=== PATIENT | male | born 1955 | race Caucasian/White ===

== ENCOUNTER 2016-08-06 01:57 | Emergency (ER) | payer MEDICARE, MEDICAID ==
[2016-08-06 02:08] VITALS: BMI 29.2
[2016-08-06] MEDS ORDERED: Sodium Chloride 0.9% 1,000 ML IV STA (02:14)
[2016-08-06] MEDS ORDERED: HYDROmorphone 2 mg/ml ISec IVP STA (02:15)
[2016-08-06 02:16] VITALS: RESP 18; TEMP 98.2
[2016-08-06] MEDS ORDERED: HYDROmorphone 2 mg/ml ISec ONE (02:20)
--- NOTE | 2016-08-06 02:20 | ED PDOC ---
Arrival/HPI - General Chief Complaint: Back Pain Time Seen by Provider: 08/06/16 02:10 Historian: Patient - History of Present Illness Narrative History of Present Illness (Text): 08/06/16 02:17 Chyna Us is a 61 year old male, with a history of CAD with stent, presents to the emergency department complaining of hematuria and testicular pain since 9 pm yesterday. States symptoms are similar to previous episode of kidney stones. Denies any flank pain. Also reports of decreased urinary output due to feelings of obstruction. Denies fever, chills, chest pain, difficulty breathing, nausea, vomiting, or any other complaints at this time. Time/Duration: 4-6 hours Symptom Onset: Sudden Symptom Course: Unchanged Activities at Onset: Light Context: Home Past Medical History - Provider Review Nursing Documentation Reviewed: Yes - Cardiac Hx Coronary Artery Disease: Yes - Psychiatric Hx Substance Use: No - Surgical History Hx Coronary Stent: Yes - Suicidal Assessment Feels Threatened In Home Enviroment: No Family/Social History - Physician Review Nursing Documentation Reviewed: Yes Family/Social History: No Known Family HX Smoking Status: n Hx Alcohol Use: No Hx Substance Use: No Allergies/Home Meds Allergies/Adverse Reactions: Allergies No Known Allergies Allergy (Unverified 01/11/13 18:11) Review of Systems - Physician Review All systems were reviewed & negative as marked: Yes - Review of Systems Constitutional: Normal. absent: Fatigue, Fevers Respiratory: Normal. absent: SOB, Cough Cardiovascular: Normal. absent: Chest Pain, Palpitations Gastrointestinal: Normal. absent: Abdominal Pain, Diarrhea, Nausea, Vomiting Genitourinary Male: Hematuria, Other (testicular pain ) Musculoskeletal: absent: Back Pain, Neck Pain Psychiatric: Normal Physical Exam Vital Signs Reviewed: Yes Vital Signs Temp Pulse Resp BP Pulse Ox 08/06/16 04:33 84 18 146/78 99 08/06/16 02:10 98.2 F 91 H 18 152/84 H 98 Temperature: Afebrile Blood Pressure: Normal Pulse: Regular Respiratory Rate: Normal Appearance: Positive for: Well-Appearing, Non-Toxic, Comfortable Pain Distress: None Mental Status: Positive for: Alert and Oriented X 3 - Systems Exam Head: Present: Atraumatic, Normocephalic Pupils: Present: PERRL Conjunctiva: Present: Normal Respiratory/Chest: Present: Clear to Auscultation, Good Air Exchange. No: Respiratory Distress, Accessory Muscle Use Cardiovascular: Present: Regular Rate and Rhythm, Normal S1, S2. No: Murmurs Abdomen: Present: Normal Bowel Sounds. No: Tenderness, Distention, Peritoneal Signs Genitourinary Male: Present: Normal External Genitalia. No: Penile Discharge, Testicle Tenderness, Penile Swelling, Erythema, Testicle Swelling Back: Present: Normal Inspection. No: CVA Tenderness Upper Extremity: Present: Normal Inspection. No: Cyanosis, Edema Lower Extremity: Present: Normal Inspection. No: Edema Neurological: Present: GCS=15, CN II-XII Intact, Speech Normal, Motor Func Grossly Intact, Normal Sensory Function Skin: Present: Warm, Dry, Normal Color. No: Rashes Psychiatric: Present: Alert, Oriented x 3, Normal Insight, Normal Concentration Medical Decision Making ED Course and Treatment: 08/06/16 02:22 Impression: A 61 year old male who presents to the ed complaining of hematuria and testicular pain. Plan: -- CT abdomen pelvis -- Labs -- Dilaudid -- IV fluids -- Zofran -- Urinalysis Progress Notes: 08/06/16 03:51 CT abdomen pelvis reviewed: IMPRESSION: 1. Hyperdense bladder mass and/or hematoma. Recommend cystoscopy. 2. Kidney lesion, indeterminate. Recommend ultrasound or MRI. explained the need for urological follow up for hematuria concerns for bladder ca, pt agrees and son will have pt follow up 08/06/16 06:38 - Lab Interpretations Lab Results: 08/06/16 02:20 08/06/16 02:20 Lab Results 08/06/16 02:20: Sodium 139, Potassium 4.4, Chloride 101, Carbon Dioxide 31, Anion Gap 11, BUN 16, Creatinine 0.9, Est GFR ( Amer) > 60, Est GFR (Non- Af Amer) > 60, Random Glucose 208 H, Calcium 9.8, Total Bilirubin 0.6, AST 36, ALT 36, Alkaline Phosphatase 63, Total Protein 8.3, Albumin 4.3, Globulin 3.9, Albumin/Globulin Ratio 1.1 08/06/16 02:20: WBC 5.5, RBC 4.67, Hgb 11.7 L, Hct 36.3 L, MCV 77.7 L, MCH 25.1 , MCHC 32.2, RDW 16.7 H, Plt Count 276, MPV 11.2 H, Gran % 50.0, Lymph % (Auto) 38.4 H, [place] % (Auto) 8.7 H, Eos % (Auto) 2.7, Baso % (Auto) 0.2, Gran # 2.75, Lymph # 2.1, [place] # 0.5, Eos # 0.2, Baso # 0.01 08/06/16 02:17: Urine Color Red, Urine Appearance Bloody, Urine pH 8.5, Ur Specific [place] 1.025, Urine Protein >=300 H, Urine Glucose (UA) 500 H, Urine Ketones Negative, Urine Blood Large H, Urine Nitrate Negative, Urine Bilirubin Negative, Urine Urobilinogen 2.0 H, Ur Leukocyte Esterase Negative, Urine RBC Tntc, Urine WBC 0 - 2, Ur Epithelial Cells 0 - 2, Urine Bacteria Small - RAD Interpretation Narrative RAD Interpretations (Text): EXAM: CT Abdomen and Pelvis Without Intravenous Contrast FINDINGS: Lower thorax: Mild atelectasis. Coronary artery calcifications. ABDOMEN: Liver: Unremarkable. Gallbladder and bile ducts: Gallstones. No ductal dilation. Pancreas: Unremarkable. No ductal dilation. Spleen: No splenomegaly. Adrenals: No mass. Kidneys and ureters: Few LEFT renal cysts. Small calculus within LEFT kidney. 0.5 x 0.5 x 0.5 cm hyperdense lesion within RIGHT kidney, indeterminate. No hydronephrosis. Stomach and bowel: No definite mural thickening. No obstruction. Appendix: Appendectomy. PELVIS: Bladder: Garcia catheter. 4.1 x 2.1 x 3.4 cm hyperdense lesion along LEFT posterolateral wall of bladder. No stones. Reproductive: Mildly enlarged prostate. ABDOMEN and PELVIS: Intraperitoneal space: No significant fluid collection. No free air. Bones/joints: Mild degenerative changes of hips and spine. No acute fracture. Soft tissues: Tiny inguinal hernias containing fat. Vasculature: Mild atherosclerotic disease of aorta and iliac arteries. No aneurysm. Lymph nodes: Few subcentimeter short axis lymph nodes within upper abdomen, retroperitoneum. IMPRESSION: 1. Hyperdense bladder mass and/or hematoma. Recommend cystoscopy. 2. Kidney lesion, indeterminate. Recommend ultrasound or MRI. 3. Incidental/non-acute findings are described above. Radiology Orders: 08/06/16 02:14 ABD & PELVIS W/O PO OR IV CONT [CT] Stat Guest Relations Receptionist: Radiologist - Medication Orders Current Medication Orders: Discontinued Medications Hydromorphone HCl (Dilaudid) 2 mg IVP STAT STA Stop: 08/06/16 02:16 Last Admin: 08/06/16 02:25 Dose: 2 mg Hydromorphone HCl (Dilaudid) Confirm Administered Dose 2 mg .ROUTE .STK-MED ONE Stop: 08/06/16 02:21 Last Admin: 08/06/16 02:20 Dose: Sodium Chloride (Sodium Chloride 0.9%) 1,000 mls @ 100 mls/hr IV .Q10H STA Stop: 08/06/16 12:13 Last Admin: 08/06/16 02:25 Dose: 100 mls/hr Ondansetron HCl (Zofran Inj) 4 mg IVP STAT STA Stop: 08/06/16 02:15 Last Admin: 08/06/16 02:23 Dose: 4 mg - Scribe Statement The provider has reviewed the documentation as recorded by the Sandra Smith Provider Attestation: All medical record entries made by the Sandra were at my direction and personally dictated by me. I have reviewed the chart and agree that the record accurately reflects my personal performance of the history, physical exam, medical decision making, and the department course for this patient. I have also personally directed, reviewed, and agree with the discharge instructions and disposition. Disposition/Present on Arrival - Present on Arrival Any Indicators Present on Arrival: No History of DVT/PE: No History of Uncontrolled Diabetes: No Urinary Catheter: No History of Decub. Ulcer: No History Surgical Site Infection Following: None - Disposition Have Diagnosis and Disposition been Completed?: Yes Diagnosis: Urinary retention, Hematuria Disposition: HOME/ ROUTINE Disposition Time: 04:25 Condition: GOOD Discharge Instructions (ExitCare): Urinary Retention in Men (ED), Acute Hematuria (ED) Additional Instructions: call dr gonzalez in am Prescriptions: Cephalexin [Keflex] 500 mg PO BID #14 capsule Referrals: Aiden Gonzalez MD [Staff Provider] - Follow up with primary
[2016-08-06 02:26] LABS: PH,URINE 8.5 (4.7-8.0); URINE BILIRUBIN NEGATIVE (NEGATIVE); URINE BLOOD LARGE (NEGATIVE); URINE GLUCOSE (UA) 500 mg/dL (NEGATIVE); URINE KETONE NEGATIVE (NEGATIVE); URINE LEUKOCYTE ESTERASE NEGATIVE Leu/uL (NEGATIVE); URINE PROTEIN >=300 mg/dL (<30 mg/dL)
[2016-08-06 02:31] LABS: URINE APPEARANCE BLOODY (CLEAR); URINE COLOR RED (YELLOW)
[2016-08-06 02:35] LABS: ADD MANUAL DIFF? NO
[2016-08-06 02:38] LABS: URINE EPITHELIAL CELLS 0 - 2 /hpf (0-5); URINE RBC TNTC /hpf (0-2); URINE WBC 0 - 2 /hpf (0-6)
[2016-08-06 02:39] LABS: URINE BACTERIA SMALL (NEG)
[2016-08-06 02:43] LABS: BASO # 0.01 K/mm3 (0.0-2.0); BASO % 0.2 % (0.0-3.0); EOS # 0.2 (0.0-0.7); EOS % 2.7 % (1.5-5.0); GRAN # 2.75 (1.4-6.5); HEMATOCRIT 36.3 % (42.0-52.0); LYMPH # 2.1 (1.2-3.4); LYMPH % 38.4 % (22.0-35.0); MEAN CELL VOLUME 77.7 fL (80.0-105.0); MEAN CORPUSCULAR HEMOGLOBIN 25.1 pg (25.0-35.0); MEAN CORPUSCULAR HGB CONC 32.2 g/dl (31.0-37.0); MEAN PLATELET VOLUME 11.2 fl (7.0-11.0); MONO # 0.5 (0.1-0.6); MONO % 8.7 % (1.0-6.0); PLATELET COUNT 276 10^3/uL (120.0-450.0); RED CELL DISTRIBUTION WIDTH 16.7 % (11.5-14.5); WHITE BLOOD COUNT 5.5 10^3/ul (4.5-11.0)
[2016-08-06 02:49] LABS: ALB/GLOB RATIO 1.1 (1.1-1.8); ALKALINE PHOSPHATASE 63 U/L (38-133); ALT/SGPT 36 U/L (7-56); AST/SGOT 36 U/L (15-59); BILIRUBIN,TOTAL 0.6 mg/dL (0.2-1.3); BLOOD UREA NITROGEN 16 mg/dL (7-21); CALCIUM 9.8 mg/dL (8.4-10.5); CARBON DIOXIDE 31 mmol/L (21-33); CHLORIDE 101 mmol/L (98-107); GFR AFRICAN-AMERICAN > 60; GLUCOSE,RANDOM 208 mg/dL (70-110); POTASSIUM 4.4 mmol/L (3.6-5.0); SODIUM 139 mmol/L (132-148); TOTAL PROTEIN 8.3 g/dL (5.8-8.3)
--- NOTE | 2016-08-06 03:47 | CT ---
EXAM: CT Abdomen and Pelvis Without Intravenous Contrast CLINICAL HISTORY: 61 years old, male; Pain; Abdominal pain; Generalized; Additional info: Flank pain TECHNIQUE: Axial computed tomography images of the abdomen and pelvis without intravenous contrast. This CT exam was performed using one or more of the following dose reduction techniques: automated exposure control, adjustment of the mA and/or kV according to patient size, and/or use of iterative reconstruction technique. Coronal and sagittal reformatted images were created and reviewed. COMPARISON: No relevant prior studies available. FINDINGS: Lower thorax: Mild atelectasis. Coronary artery calcifications. ABDOMEN: Liver: Unremarkable. Gallbladder and bile ducts: Gallstones. No ductal dilation. Pancreas: Unremarkable. No ductal dilation. Spleen: No splenomegaly. Adrenals: No mass. Kidneys and ureters: Few LEFT renal cysts. Small calculus within LEFT kidney. 0.5 x 0.5 x 0.5 cm hyperdense lesion within RIGHT kidney, indeterminate. No hydronephrosis. Stomach and bowel: No definite mural thickening. No obstruction. Appendix: Appendectomy. PELVIS: Bladder: Garcia catheter. 4.1 x 2.1 x 3.4 cm hyperdense lesion along LEFT posterolateral wall of bladder. No stones. Reproductive: Mildly enlarged prostate. ABDOMEN and PELVIS: Intraperitoneal space: No significant fluid collection. No free air. Bones/joints: Mild degenerative changes of hips and spine. No acute fracture. Soft tissues: Tiny inguinal hernias containing fat. Vasculature: Mild atherosclerotic disease of aorta and iliac arteries. No aneurysm. Lymph nodes: Few subcentimeter short axis lymph nodes within upper abdomen, retroperitoneum. IMPRESSION: 1. Hyperdense bladder mass and/or hematoma. Recommend cystoscopy. 2. Kidney lesion, indeterminate. Recommend ultrasound or MRI. 3. Incidental/non-acute findings are described above.
[2016-08-06 04:34] VITALS: BP 146/78; PULSE 84; O2SAT 99
== END 2016-08-06 04:43 | disposition home or self-care (01) ==
LOC: ED 01:57
DX: R33.9 Retention of urine, unspecified (principal); R31.9 Hematuria, unspecified
CPT/HCPCS: 74176; 80053; 81001; 85025; 96374; 96375; 99284; J1170; J2405; J7040

== ENCOUNTER 2016-08-06 09:00 | Emergency (ER) | payer MEDICARE, MEDICAID ==
[2016-08-06 09:01] VITALS: BMI 29.2
[2016-08-06 09:20] VITALS: BP 107/71; PULSE 77; RESP 18; TEMP 97.9; O2SAT 93
--- NOTE | 2016-08-06 09:32 | ED PDOC ---
Arrival/HPI - General Chief Complaint: Male Genitourinary Time Seen by Provider: 08/06/16 09:06 Historian: Patient - History of Present Illness Narrative History of Present Illness (Text): 08/06/16 09:29 61yo male with history of urinary retention with lobo bag, present to ED requesting the Lobo bag to be taken out. Patient was seen here last night for hematuria and urinary retention and DC home earlier this morning with the Lobo bag with the instruction to f/u with Dr. Gonzalez today. Patient states he has been able to urinate on his own. states the urine comes out around the meatus, and not directly into the Lobo. states he prefer th Lobo out. Denies hematuria at this time. Denies any other complaint. Past Medical History - Provider Review Nursing Documentation Reviewed: Yes - Cardiac Hx Cardiac Disorders: Yes - Pulmonary Hx Respiratory Disorders: No - Neurological Hx Neurological Disorder: No - HEENT Hx HEENT Disorder: No - Renal Hx Renal Disorder: No - Endocrine/Metabolic Hx Endocrine Disorders: No - Hematological/Oncological Hx Blood Disorders: No - Integumentary Hx Dermatological Disorder: No - Musculoskeletal/Rheumatological Hx Musculoskeletal Disorders: No - Gastrointestinal Hx Gastrointestinal Disorders: No - Genitourinary/Gynecological Other/Comment: URINARY RETENTION - Psychiatric Hx Psychophysiologic Disorder: No Hx Substance Use: No - Surgical History Hx Coronary Stent: Yes - Suicidal Assessment Feels Threatened In Home Enviroment: No Family/Social History - Physician Review Nursing Documentation Reviewed: Yes Family/Social History: Unknown Family HX Smoking Status: Never Smoked Hx Alcohol Use: No Hx Substance Use: No Allergies/Home Meds Allergies/Adverse Reactions: Allergies No Known Allergies Allergy (Unverified 08/06/16 09:15) Review of Systems - Physician Review All systems were reviewed & negative as marked: Yes - Review of Systems Constitutional: Normal Eyes: Normal ENT: Normal Respiratory: Normal Cardiovascular: Normal Gastrointestinal: Normal Genitourinary Male: Other (Lobo bag removal) Musculoskeletal: Normal Skin: Normal Neurological: Normal Endocrine: Normal Hemo/Lymphatic: Normal Psychiatric: Normal Physical Exam Vital Signs Reviewed: Yes Vital Signs Temp Pulse Resp BP Pulse Ox 08/06/16 09:20 97.9 F 77 18 107/71 93 L Temperature: Afebrile Blood Pressure: Normal Pulse: Regular Respiratory Rate: Normal Appearance: Positive for: Well-Appearing, Non-Toxic, Comfortable Pain Distress: None Mental Status: Positive for: Alert and Oriented X 3 - Systems Exam Head: Present: Atraumatic, Normocephalic Pupils: Present: PERRL Extroacular Muscles: Present: EOMI Conjunctiva: Present: Normal Mouth: Present: Moist Mucous Membranes Neck: Present: Normal Range of Motion Respiratory/Chest: Present: Clear to Auscultation, Good Air Exchange. No: Respiratory Distress, Accessory Muscle Use Cardiovascular: Present: Regular Rate and Rhythm, Normal S1, S2. No: Murmurs Abdomen: Present: Normal Bowel Sounds. No: Tenderness, Distention, Peritoneal Signs Genitourinary Male: Present: Other (Lobo bag noted, not well placed into the meatus. Bag noted to be empty, without urine.) Back: Present: Normal Inspection Upper Extremity: Present: Normal Inspection. No: Cyanosis, Edema Lower Extremity: Present: Normal Inspection. No: Edema Neurological: Present: GCS=15, CN II-XII Intact, Speech Normal Skin: Present: Warm, Dry, Normal Color. No: Rashes Psychiatric: Present: Alert, Oriented x 3, Normal Insight, Normal Concentration Medical Decision Making ED Course and Treatment: 08/06/16 09:36 Pt in ED for lobo bag removal Pt's chart from last night was reviewed. Abdominal/Pelvis CT reprot reviewed indicated IMPRESSION: 1. Hyperdense bladder mass and/or hematoma. Recommend cystoscopy. 2. Kidney lesion, indeterminate. Recommend ultrasound or MRI. Pt was DC home with Lobo bag in place and referred to Dr. gonzalez. He came back to ED this morning, requesting the removal of the bag. states is uncomfortable and he has been urinating by himself and the urines comes out from the meatus. He refused replacement of the Lobo. He understood that he can have another retention secondary to the CT finding. He understood this, but still wants the Lobo out, without replacement. Lobo bag was removed in ED by TJ Lopez. He was strongly advised to call Dr. gonzalez's office today and if possible f/u with him today. Advised TRT ED for any new or worsening symptom. Disposition/Present on Arrival - Present on Arrival Any Indicators Present on Arrival: No History of DVT/PE: No History of Uncontrolled Diabetes: No Urinary Catheter: No History of Decub. Ulcer: No History Surgical Site Infection Following: None - Disposition Have Diagnosis and Disposition been Completed?: Yes Diagnosis: Bladder mass, Encounter for Lobo catheter removal Disposition: HOME/ ROUTINE Disposition Time: 09:40 Patient Plan: Discharge Condition: STABLE Discharge Instructions (ExitCare): Urinary Leg Bag (GEN) Additional Instructions: Follow up with Urologist, Dr. gonzalez Return to ED for any new or worsening symptoms Referrals: Aiden Gonzalez MD [Staff Provider] - Follow up with primary
== END 2016-08-06 10:26 | disposition home or self-care (01) ==
LOC: ED 09:00
DX: N32.9 Bladder disorder, unspecified (principal); Z46.6 Encounter for fitting and adjustment of urinary device

== ENCOUNTER 2016-08-06 21:27 | Observation (INO) | payer OTHER, MEDICAID ==
[2016-08-06 21:31] VITALS: BMI 29.3
--- NOTE | 2016-08-06 21:42 | ED PDOC ---
Arrival/HPI - General Chief Complaint: Male Genitourinary Time Seen by Provider: 08/06/16 21:34 Historian: Patient - History of Present Illness Narrative History of Present Illness (Text): 08/06/16 21:42 Chyna Us is a 61 year old male, whose past medical history includes CAD with coronary stent and urinary retention, who presents to the Emergency department brought in by EMS for a clogged Lobo catheter tonight. Patient was seen yesterday evening for hematuria and had a Lobo catheter placed. Patient returned to ER earlier today and insisted the Lobo be removed. Patient was seen by his urologist and had another Lobo placed. Patient states the Lobo is now clogged and he is unable to pass urine with associated discomfort. Patient denies any fever, chills, nausea, vomiting, diarrhea, or any other complaints. Time/Duration: Other (tonight) Symptom Onset: Gradual Symptom Course: Unchanged Activities at Onset: Rest, Light Context: Home Past Medical History - Provider Review Nursing Documentation Reviewed: Yes - Cardiac Hx Cardiac Disorders: Yes - Pulmonary Hx Respiratory Disorders: No - Neurological Hx Neurological Disorder: No - HEENT Hx HEENT Disorder: No - Renal Hx Renal Disorder: No - Endocrine/Metabolic Hx Endocrine Disorders: No - Hematological/Oncological Hx Blood Disorders: No - Integumentary Hx Dermatological Disorder: No - Musculoskeletal/Rheumatological Hx Musculoskeletal Disorders: No - Gastrointestinal Hx Gastrointestinal Disorders: No - Genitourinary/Gynecological Other/Comment: URINARY RETENTION - Psychiatric Hx Psychophysiologic Disorder: No Hx Substance Use: No - Surgical History Hx Coronary Stent: Yes - Suicidal Assessment Feels Threatened In Home Enviroment: No Family/Social History - Physician Review Nursing Documentation Reviewed: Yes Family/Social History: No Known Family HX Smoking Status: Never Smoked Hx Alcohol Use: No Hx Substance Use: No Allergies/Home Meds Allergies/Adverse Reactions: Allergies No Known Allergies Allergy (Unverified 08/06/16 09:15) Home Medications: Home Meds Medication Instructions Recorded Confirmed Atorvastatin [Lipitor] 20 mg PO DAILY 08/07/16 08/07/16 Celecoxib [celeBREX] 200 mg PO 08/07/16 Gabapentin [Neurontin] 300 mg PO 08/07/16 Loratadine [Claritin] 10 mg PO 08/07/16 Montelukast [Singulair] 10 mg PO 08/07/16 metFORMIN [glucOPHAGE] 500 mg PO 08/07/16 Review of Systems - Physician Review All systems were reviewed & negative as marked: Yes - Review of Systems Constitutional: Normal. absent: Fevers Eyes: Normal ENT: Normal Respiratory: Normal. absent: SOB, Cough Cardiovascular: Normal. absent: Chest Pain Gastrointestinal: Normal. absent: Abdominal Pain, Nausea, Vomiting Genitourinary Male: Hematuria, Other (+clogged Lobo) Musculoskeletal: Normal Skin: Normal Neurological: Normal Endocrine: Normal Hemo/Lymphatic: Normal Psychiatric: Normal Physical Exam Vital Signs Reviewed: Yes Vital Signs Temp Pulse Resp BP Pulse Ox 08/07/16 00:43 97.9 F 68 18 117/69 96 08/06/16 21:32 97.9 F 86 18 142/88 96 Temperature: Afebrile Blood Pressure: Normal Pulse: Regular Respiratory Rate: Normal Appearance: Positive for: Well-Appearing, Non-Toxic, Comfortable Pain Distress: None Mental Status: Positive for: Alert and Oriented X 3 - Systems Exam Head: Present: Atraumatic, Normocephalic Pupils: Present: PERRL Extroacular Muscles: Present: EOMI Conjunctiva: Present: Normal Mouth: Present: Moist Mucous Membranes Neck: Present: Normal Range of Motion Respiratory/Chest: Present: Clear to Auscultation, Good Air Exchange. No: Respiratory Distress, Accessory Muscle Use Cardiovascular: Present: Regular Rate and Rhythm, Normal S1, S2. No: Murmurs Abdomen: Present: Normal Bowel Sounds. No: Tenderness, Distention, Peritoneal Signs Genitourinary Male: Present: Other (Obstructed lobo with hematuria) Back: Present: Normal Inspection Upper Extremity: Present: Normal Inspection. No: Cyanosis, Edema Lower Extremity: Present: Normal Inspection. No: Edema Neurological: Present: GCS=15, CN II-XII Intact, Speech Normal Skin: Present: Warm, Dry, Normal Color. No: Rashes Psychiatric: Present: Alert, Oriented x 3, Normal Insight, Normal Concentration Medical Decision Making ED Course and Treatment: 08/06/16 21:42 Impression: 61 year old male complaining of a clogged Lobo tonight. Differential Diagnosis include but are not limited to: obstructed Lobo vs. hematuria Plan: -- Reassess and disposition Prior Visits: Notes and results from previous visits were reviewed. Progress Notes: 08/06/16 22:[address] Xi Gonzalez, urologist, who is aware and agrees with plan. States he will come in to evaluate pt. 08/06/16 22:18 PROCEDURE: Lobo Irrigation Performed by the emergency provider Consent: Informed consent, after discussion of the risks, benefits, and alternatives to the procedure was obtained. Timeout: A timeout to verify the correct patient, procedure, and site was performed. Indication: Obstructed Lobo Procedure: Lobo catheter irrigated with sterile saline. Post-procedure: The patient tolerated the procedure well with no immediate complications 08/06/16 22:54 Dr. Gonzalez to Emergency department to evaluate pt. Requests pt be admitted to hospitalist service and he be placed on consult. 08/06/16 23:16 Case discussed with medical scientist distribution center manager, who is aware and agrees with plan. 08/06/16 23:[address] Mcdonough, who is aware and agrees with plan. Accepts pt in to hospitalist service. Pt will go to [facility] observation for gross hematuria. - Lab Interpretations Microbiology Results: Microbiology Results 08/07/16 09:00 Urine,Lobo Urine Culture - Final No Growth (<1,000 CFU/ML) Lab Results: 08/07/16 06:40 08/07/16 06:40 Lab Results 08/07/16 09:00: Urine Color Red, Urine Appearance Cloudy, Urine pH 6.0, Ur Specific [place] 1.025, Urine Protein 100 H, Urine Glucose (UA) >=1000, Urine Ketones Negative, Urine Blood Large H, Urine Nitrate Negative, Urine Bilirubin Negative, Urine Urobilinogen 0.2, Ur Leukocyte Esterase Negative, Urine RBC Tntc , Urine WBC 0 - 2, Ur Epithelial Cells 0 - 2, Urine Bacteria Trace 08/07/16 06:40: Blood Type A POSITIVE, Antibody Screen Negative, BBK History Checked No verified bt 08/07/16 06:40: Hemoglobin A1c 8.9 H 08/07/16 06:40: Sodium 139, Potassium 4.0, Chloride 103, Carbon Dioxide 26, Anion Gap 14, BUN 18, Creatinine 1.0, Est GFR ( Amer) > 60, Est GFR (Non- Af Amer) > 60, Random Glucose 269 H, Calcium 9.4, Total Bilirubin 0.6, AST 34, ALT 34, Alkaline Phosphatase 60, Total Protein 7.7, Albumin 3.9, Globulin 3.7, Albumin/Globulin Ratio 1.1 08/07/16 06:40: WBC 5.8, RBC 4.41, Hgb 11.0 L, Hct 33.8 L, MCV 76.6 L, MCH 24.9 L, MCHC 32.5, RDW 16.8 H, Plt Count 246, MPV 11.2 H 08/07/16 00:36: Blood Type Confirm A POSITIVE 08/07/16 00:36: Sodium 136, Potassium 4.3, Chloride 101, Carbon Dioxide 25, Anion Gap 14, BUN 17, Creatinine 1.0, Est GFR ( Amer) > 60, Est GFR (Non- Af Amer) > 60, Random Glucose 332 H*, Calcium 9.2, Total Bilirubin 0.5, AST 29, ALT 39, Alkaline Phosphatase 59, Total Protein 7.4, Albumin 3.9, Globulin 3.5, Albumin/Globulin Ratio 1.1 08/07/16 00:36: PT 11.2, INR 1.04, APTT 24.9 08/07/16 00:36: WBC 6.6, RBC 4.43, Hgb 11.1 L, Hct 34.1 L, MCV 77.0 L, MCH 25.1 , MCHC 32.6, RDW 16.7 H, Plt Count 246, MPV 11.3 H, Gran % 75.4 H, Lymph % (Auto ) 19.0 L, [place] % (Auto) 4.8, Eos % (Auto) 0.6 L, Baso % (Auto) 0.2, Gran # 5.00 , Lymph # 1.3, [place] # 0.3, Eos # 0.0, Baso # 0.01 I have reviewed the lab results: Yes - RAD Interpretation Radiology Orders: 08/06/16 23:43 CHEST PORTABLE [RAD] Stat Test Eng: Radiologist - Medication Orders Current Medication Orders: Discontinued Medications Atorvastatin Calcium (Lipitor) 40 mg PO STAT STA Stop: 08/07/16 00:51 Last Admin: 08/07/16 02:51 Dose: 40 mg Atorvastatin Calcium (Lipitor) 20 mg PO DAILY GALINDO Ceftriaxone Sodium (Rocephin) Confirm Administered Dose 1 gm .ROUTE .[facility]-MED ONE Stop: 08/07/16 15:39 Last Admin: 08/07/16 15:45 Dose: 1 gm Comments: ORM Administered Route: IVPB Docusate Sodium (Colace) 100 mg PO BID [facility] Last Admin: 08/09/16 17:17 Dose: 100 mg Fentanyl (Fentanyl) Confirm Administered Dose 100 mcg .ROUTE .STK-MED ONE Stop: 08/07/16 15:33 Gabapentin (Neurontin) 300 mg PO DAILY GALINDO PRN Reason: Protocol Lactated Ringer's (Lactated Ringer's) 1,000 mls @ 75 mls/hr IV .[id number] [facility] Stop: 08/07/16 18:32 Ceftriaxone Sodium (Rocephin 1 Gram Ivpb) 1 gm in 100 mls @ 200 mls/hr IVPB STAT STA PRN Reason: Protocol Stop: 08/08/16 09:19 Last Admin: 08/08/16 09:43 Dose: 200 mls/hr Insulin Human Regular (Humulin R Med) 0 units SC ACHS [facility] PRN Reason: Protocol Last Admin: 08/09/16 16:02 Dose: 5 units Lidocaine (Lidocaine (Bolus)) Confirm Administered Dose 100 mg IV .STK-MED ONE Stop: 08/07/16 15:33 Loratadine (Claritin) 10 mg PO DAILY PRN PRN Reason: Allergy symptoms Metformin HCl (Glucophage) 500 mg PO DAILY [facility] Last Admin: 08/09/16 09:12 Dose: 500 mg Metoprolol Tartrate (Lopressor) 12.5 mg PO BID [facility] Last Admin: 08/09/16 17:17 Dose: 12.5 mg Midazolam HCl (Versed Inj) Confirm Administered Dose 2 mg .ROUTE .STK-MED ONE Stop: 08/07/16 15:33 Mineral Oil (Fleet Mineral Oil Enema) 135 ml RC ONCE ONE Stop: 08/08/16 08:50 Last Admin: 08/08/16 09:42 Dose: 135 ml Montelukast Sodium (Singulair) 10 mg PO DAILY PRN PRN Reason: Allergy symptoms Morphine Sulfate (Morphine) Confirm Administered Dose 2 mg .ROUTE .STK-MED ONE Stop: 08/07/16 16:23 Morphine Sulfate (Morphine) 2 mg IVP Q15MIN PRN PRN Reason: Pain, moderate (4-7) Stop: 08/07/16 23:59 Last Admin: 08/07/16 16:51 Dose: 2 mg Re-Assess: ANAT Pain Assessment Document 08/07/16 17:55 [facility] [facility] [place]Rec: 08/07/16 18:06 [facility] [place] [facility] [id number][place] Pain Reassessment Is this a pain reassessment? Yes Sleep Is patient sleeping during reassessment? No Presence of Pain Presence of Pain Yes Pain Scale Used Pain Scale Used Numeric Morphine Sulfate (Morphine) Confirm Administered Dose 2 mg .ROUTE .STK-MED ONE Stop: 08/07/16 16:52 Morphine Sulfate (Morphine) 2 mg IVP STAT STA Stop: 08/07/16 18:12 Last Admin: 08/07/16 18:27 Dose: 2 mg Morphine Sulfate (Morphine) 2 mg IVP Q4H PRN PRN Reason: Pain, moderate (4-7) Last Admin: 08/08/16 22:42 Dose: 2 mg Oxybutynin Chloride (Ditropan Tab) 5 mg PO TID GALINDO Last Admin: 08/09/16 17:17 Dose: 5 mg Oxycodone/Acetaminophen (Percocet 5/325 Mg Tab) 1 tab PO Q6H PRN PRN Reason: Pain, moderate (4-7) Stop: 08/12/16 11:58 Last Admin: 08/09/16 12:11 Dose: 1 tab Re-Assess: [facility] Pain Assessment Document 08/09/16 13:11 [facility] [place]Rec: 08/09/16 13:20 [facility] [place] [facility] [place] [id number][place] Pain Reassessment Is this a pain reassessment? Yes Sleep Is patient sleeping during reassessment? No Presence of Pain Presence of Pain No Pantoprazole Sodium (Protonix Inj) 40 mg IVP DAILY [facility] Last Admin: 08/07/16 09:03 Dose: 40 mg Pantoprazole Sodium (Protonix Ec Tab) 40 mg PO DAILY [facility] Polyethylene Glycol (Miralax) 17 gm PO ONCE ONE Stop: 08/08/16 08:50 Last Admin: 08/08/16 09:44 Dose: 17 gm Propofol (Diprivan) Confirm Administered Dose 200 mg .ROUTE .STK-MED ONE Stop: 08/07/16 15:32 Propofol (Diprivan) Confirm Administered Dose 200 mg .ROUTE .STK-MED ONE Stop: 08/07/16 15:56 Sevoflurane (Ultane Novation) Confirm Administered Dose 250 ml .ROUTE .STK-MED ONE Stop: 08/07/16 15:54 - Scribe Statement The provider has reviewed the documentation as recorded by the Scribe Amaya Graff All medical record entries made by the Scribe were at my direction and personally dictated by me. I have reviewed the chart and agree that the record accurately reflects my personal performance of the history, physical exam, medical decision making, and the department course for this patient. I have also personally directed, reviewed, and agree with the discharge instructions and disposition. Disposition/Present on Arrival - Present on Arrival Any Indicators Present on Arrival: No History of DVT/PE: No History of Uncontrolled Diabetes: No Urinary Catheter: No History of Decub. Ulcer: No History Surgical Site Infection Following: None - Disposition Have Diagnosis and Disposition been Completed?: Yes Diagnosis: Urinary retention, Hematuria Disposition: HOSPITALIZED Disposition Time: 23:40 Condition: GOOD
[2016-08-07 01:00] LABS: ADD MANUAL DIFF? NO
--- NOTE | 2016-08-07 01:07 | CP.PCM.HP ---
<JenniferDong - Last Filed: 08/07/16 02:07> History of Present Illness - History of Present Illness History of Present Illness: 61 y/o M with PMH of CAD with stents and IDDM presents to the hospital for clogged urinary lobo catheter. Pt was initially here yesterday morning and came in with hematuria and testicular pain like symptoms. Pt received a CT scan of abdomen/pelvis at this time which showed a bladder mass and lesion on the right kidney. Pt was sent home from ED with Prescription for Keflex and a lobo , pt was also told to follow up with Dr. Gonzalez, urology. Pt returned later that afternoon due to urine leaking out from his meatus, around the lobo. Pt had the lobo removed at his request, and was told to follow up with Urology. Presently, the patient returns to the hospital after seeing urologist, Dr. Gonzalez, who placed a lobo catheter. Pt now states the lobo is clogged and it is causing him discomfort. Pt denies any current abdominal pain. Pt states he has never had anything like this in the past. Denies CP, SOB, N/V/D, dysuria. PMD: Dr. Mireles in [place] PMH: CAD, IDDM Surgical Hx: 3 cardiac stents placed, most recent stent placed in 01/2016 Family Hx: Father - Stroke Social Hx: Denies alcohol, tobacco, or illicit drug use Allergies: NKDA Medication: ASA, Plavix, Novolog, unsure of other medications. Present on Admission - Present on Admission Any Indicators Present on Admission: No Review of Systems - Constitutional Constitutional: absent: Chills, Fever, Weakness - EENT Eyes: absent: Blurred Vision, Change in Vision Nose/Mouth/Throat: absent: Nasal Congestion, Nasal Discharge - Cardiovascular Cardiovascular: absent: Chest Pain, Irregular Heart Rhythm - Respiratory Respiratory: absent: Cough, Dyspnea - Gastrointestinal Gastrointestinal: absent: Abdominal Pain - Genitourinary Genitourinary: Hematuria. absent: Flank Pain - Integumentary Integumentary: absent: New Lesions, Rash - Neurological Neurological: absent: Numbness, Syncope, Tingling Past Patient History - Past Social History Smoking Status: Never Smoked - CARDIAC Hx Cardiac Disorders: Yes - PULMONARY Hx Respiratory Disorders: No - NEUROLOGICAL Hx Neurological Disorder: No - HEENT Hx HEENT Problems: No - RENAL Hx Chronic Kidney Disease: No - ENDOCRINE/METABOLIC Hx Endocrine Disorders: No - HEMATOLOGICAL/ONCOLOGICAL Hx Blood Disorders: No - INTEGUMENTARY Hx Dermatological Problems: No - MUSCULOSKELETAL/RHEUMATOLOGICAL Hx Musculoskeletal Disorders: No - GASTROINTESTINAL Hx Gastrointestinal Disorders: No - GENITOURINARY/GYNECOLOGICAL Other/Comment: URINARY RETENTION - PSYCHIATRIC Hx Psychophysiologic Disorder: No Hx Substance Use: No - SURGICAL HISTORY Hx Coronary Stent: Yes Meds Allergies/Adverse Reactions: Allergies Allergy/AdvReac Type Severity Reaction Status Date / Time No Known Allergies Allergy Unverified 08/06/16 09:15 Physical Exam - Constitutional Appears: Well, No Acute Distress - Head Exam Head Exam: ATRAUMATIC, NORMAL INSPECTION, NORMOCEPHALIC - Eye Exam Eye Exam: EOMI, Normal appearance, PERRL - ENT Exam ENT Exam: Mucous Membranes Moist, Normal Exam - Neck Exam Neck exam: Positive for: Normal Inspection. Negative for: Lymphadenopathy - Respiratory Exam Respiratory Exam: Clear to Auscultation Bilateral, NORMAL BREATHING PATTERN. absent: Rhonchi, Wheezes - Cardiovascular Exam Cardiovascular Exam: RRR, +S1, +S2 - GI/Abdominal Exam GI & Abdominal Exam: Normal Bowel Sounds, Soft. absent: Tenderness - Exam Additional comments: Lobo in place - Extremities Exam Extremities exam: Positive for: normal inspection. Negative for: calf tenderness, pedal edema - Neurological Exam Neurological exam: Alert, CN II-XII Intact, Oriented x3 - Psychiatric Exam Psychiatric exam: Normal Affect, Normal Mood - Skin Skin Exam: Intact, Normal Color, Warm Results - Vital Signs Recent Vital Signs: Last Vital Signs Temp 97.9 F 08/07/16 00:43 Pulse 68 08/07/16 00:43 Resp 18 08/07/16 00:43 BP 117/69 08/07/16 00:43 Pulse Ox 96 08/07/16 00:43 - Labs Result Diagrams: 08/07/16 00:36 08/07/16 00:36 Assessment & Plan - Assessment and Plan (Free Text) Plan: 61 y/o M with PMH of CAD and IDDM presents with hematuria. Pt was seen by Dr. Gonzalez in the ED who states pt will go for cystoscopy in the AM to further evaluate bladder mass and cause of hematuria. At this time, pt will be admitted to med/surg and kept NPO in preparation for procedure tomorrow. 1. Hematuria NPO Cystoscopy tomorrow AM by Dr. Gonzalez Urology consulted, Dr. Gonzalez 2. Hx of CAD with stent placement Pt unsure of medication, will bring in meds tomorrow Will restart lipitor and lopressor due to cardiac hx Will hold ASA and plavix at this time 3. IDDM ISS HgA1c ordered 4. PPX Protonix SCDs Seen, reviewed, and discussed with attending Jennifer PGY-1 <Luisito Mcdonough Q - Last Filed: 08/07/16 03:30> Results - Vital Signs Recent Vital Signs: Last Vital Signs Temp 98.3 F 08/07/16 02:09 Pulse 66 08/07/16 02:09 Resp 18 08/07/16 02:09 BP 115/68 08/07/16 02:09 Pulse Ox 96 08/07/16 00:43 - Labs Result Diagrams: 08/07/16 00:36 08/07/16 00:36 Labs: Laboratory Results - last 24 hr 08/07/16 08/07/16 08/07/16 00:36 00:36 00:36 WBC 6.6 RBC 4.43 Hgb 11.1 L Hct 34.1 L MCV 77.0 L MCH 25.1 MCHC 32.6 RDW 16.7 H Plt Count 246 MPV 11.3 H Gran % 75.4 H Lymph % (Auto) 19.0 L [place] % (Auto) 4.8 Eos % (Auto) 0.6 L Baso % (Auto) 0.2 Gran # 5.00 Lymph # 1.3 [place] # 0.3 Eos # 0.0 Baso # 0.01 PT 11.2 INR 1.04 APTT 24.9 Sodium 136 Potassium 4.3 Chloride 101 Carbon Dioxide 25 Anion Gap 14 BUN 17 Creatinine 1.0 Est GFR ( Amer) > 60 Est GFR (Non-Af Amer) > 60 Random Glucose 332 H* Calcium 9.2 Total Bilirubin 0.5 AST 29 ALT 39 Alkaline Phosphatase 59 Total Protein 7.4 Albumin 3.9 Globulin 3.5 Albumin/Globulin Ratio 1.1 Attending/Attestation - Attestation I have personally seen and examined this patient.: Yes I have fully participated in the care of the patient.: Yes I have reviewed all pertinent clinical information: Yes
[2016-08-07 01:10] LABS: BASO # 0.01 K/mm3 (0.0-2.0); BASO % 0.2 % (0.0-3.0); EOS % 0.6 % (1.5-5.0); GRAN % 75.4 % (50.0-68.0); HEMATOCRIT 34.1 % (42.0-52.0); LYMPH # 1.3 (1.2-3.4); MEAN CORPUSCULAR HEMOGLOBIN 25.1 pg (25.0-35.0); MEAN CORPUSCULAR HGB CONC 32.6 g/dl (31.0-37.0); MEAN PLATELET VOLUME 11.3 fl (7.0-11.0); MONO # 0.3 (0.1-0.6); MONO % 4.8 % (1.0-6.0); PLATELET COUNT 246 10^3/uL (120.0-450.0); RED CELL DISTRIBUTION WIDTH 16.7 % (11.5-14.5); WHITE BLOOD COUNT 6.6 10^3/ul (4.5-11.0)
[2016-08-07 01:13] LABS: INR 1.04 (0.93-1.08); PARTIAL THROMBOPLASTIN TIME 24.9 Seconds (23.7-30.8)
[2016-08-07 01:20] LABS: ALB/GLOB RATIO 1.1 (1.1-1.8); ALKALINE PHOSPHATASE 59 U/L (38-133); ALT/SGPT 39 U/L (7-56); AST/SGOT 29 U/L (15-59); BILIRUBIN,TOTAL 0.5 mg/dL (0.2-1.3); BLOOD UREA NITROGEN 17 mg/dL (7-21); CALCIUM 9.2 mg/dL (8.4-10.5); CARBON DIOXIDE 25 mmol/L (21-33); CHLORIDE 101 mmol/L (95-110); GFR AFRICAN-AMERICAN > 60; POTASSIUM 4.3 mmol/L (3.6-5.0); SODIUM 136 mmol/L (132-148); TOTAL PROTEIN 7.4 g/dL (5.8-8.3)
[2016-08-07 01:26] LABS: GLUCOSE,RANDOM 332 mg/dL (70-110)
[2016-08-07 07:15] LABS: HEMATOCRIT 33.8 % (42.0-52.0); MEAN CELL VOLUME 76.6 fL (80.0-105.0); MEAN CORPUSCULAR HEMOGLOBIN 24.9 pg (25.0-35.0); MEAN CORPUSCULAR HGB CONC 32.5 g/dl (31.0-37.0); MEAN PLATELET VOLUME 11.2 fl (7.0-11.0); RED CELL DISTRIBUTION WIDTH 16.8 % (11.5-14.5); WHITE BLOOD COUNT 5.8 10^3/ul (4.5-11.0)
[2016-08-07 07:18] LABS: ALB/GLOB RATIO 1.1 (1.1-1.8); ALKALINE PHOSPHATASE 60 U/L (38-133); ALT/SGPT 34 U/L (7-56); AST/SGOT 34 U/L (15-59); BILIRUBIN,TOTAL 0.6 mg/dL (0.2-1.3); BLOOD UREA NITROGEN 18 mg/dL (7-21); CALCIUM 9.4 mg/dL (8.4-10.5); CARBON DIOXIDE 26 mmol/L (21-33); CHLORIDE 103 mmol/L (98-107); GFR AFRICAN-AMERICAN > 60; GLUCOSE,RANDOM 269 mg/dL (70-110); SODIUM 139 mmol/L (132-148); TOTAL PROTEIN 7.7 g/dL (5.8-8.3)
--- NOTE | 2016-08-07 08:14 | RAD ---
HISTORY: or COMPARISON: No prior. FINDINGS: LUNGS: No active pulmonary disease. PLEURA: No significant pleural effusion identified, no pneumothorax apparent. CARDIOVASCULAR: Normal. OSSEOUS STRUCTURES: No significant abnormalities. VISUALIZED UPPER ABDOMEN: Normal. OTHER FINDINGS: None. IMPRESSION: No active disease.
[2016-08-07] MEDS: Insulin Reg-MEDIUM-Coverage SC SCH ×4 (09:03→22:32)
[2016-08-07 10:04] LABS: URINE BILIRUBIN NEGATIVE (NEGATIVE); URINE BLOOD LARGE (NEGATIVE); URINE GLUCOSE (UA) >=1000 mg/dL (NEGATIVE); URINE KETONE NEGATIVE (NEGATIVE); URINE LEUKOCYTE ESTERASE NEGATIVE Leu/uL (NEGATIVE); URINE PROTEIN 100 mg/dL (<30 mg/dL); URINE UROBILINOGEN 0.2 E.U./dL (<1 E.U./dL)
[2016-08-07 10:05] LABS: URINE APPEARANCE CLOUDY (CLEAR); URINE COLOR RED (YELLOW)
[2016-08-07 10:21] LABS: URINE RBC TNTC /hpf (0-2)
[2016-08-07 10:22] LABS: URINE BACTERIA TRACE (NEG); URINE EPITHELIAL CELLS 0 - 2 /hpf (0-5); URINE WBC 0 - 2 /hpf (0-6)
--- NOTE | 2016-08-07 10:44 | CARD ---
APPROVED REPORT EKG Measurement Heart [id number] <Conclusion> Normal sinus rhythm Left axis deviation Possible inferior infarct, age undetermined NSSTW changes
[2016-08-07] MEDS: Morphine 2 mg/ml ISec IVP PRN ×4 (14:23→20:40)
[2016-08-07] MEDS ORDERED: Propofol 10 mg/ml Inj (20 ML) ONE ×2 (15:31→15:55)
[2016-08-07] MEDS ORDERED: Midazolam 2 MG/2 ML VIAL ONE (15:32)
[2016-08-07] MEDS ORDERED: cefTRIAXone (Rocephin) 1 gm Inj ONE (15:38)
[2016-08-07] MEDS ORDERED: Sevoflurane - Inhalation Anesthetic Liq (250 ml) ONE (15:53)
[2016-08-07] MEDS ORDERED: Morphine 2 mg/ml ISec ONE ×2 (16:22→16:51)
[2016-08-07] MEDS ORDERED: Lactated Ringer's 1,000 ML IV SCH (16:31)
[2016-08-07] MEDS ORDERED: Morphine 2 mg/ml ISec IVP STA (18:11)
[2016-08-08] MEDS: Morphine 2 mg/ml ISec IVP PRN ×3 (01:49→22:42)
[2016-08-08 07:20] LABS: ADD MANUAL DIFF? NO
[2016-08-08 07:25] LABS: BASO # 0.01 K/mm3 (0.0-2.0); BASO % 0.1 % (0.0-3.0); EOS # 0.2 (0.0-0.7); EOS % 2.1 % (1.5-5.0); GRAN # 4.54 (1.4-6.5); HEMATOCRIT 33.9 % (42.0-52.0); LYMPH # 1.8 (1.2-3.4); LYMPH % 25.4 % (22.0-35.0); MEAN CELL VOLUME 76.9 fL (80.0-105.0); MEAN CORPUSCULAR HEMOGLOBIN 24.9 pg (25.0-35.0); MEAN CORPUSCULAR HGB CONC 32.4 g/dl (31.0-37.0); MEAN PLATELET VOLUME 10.8 fl (7.0-11.0); MONO # 0.7 (0.1-0.6); MONO % 9.4 % (1.0-6.0); PLATELET COUNT 245 10^3/uL (120.0-450.0); RED CELL DISTRIBUTION WIDTH 16.7 % (11.5-14.5); WHITE BLOOD COUNT 7.2 10^3/ul (4.5-11.0)
[2016-08-08 07:37] LABS: BLOOD UREA NITROGEN 19 mg/dL (7-21); CARBON DIOXIDE 25 mmol/L (21-33); CHLORIDE 102 mmol/L (98-107); GFR AFRICAN-AMERICAN > 60; GLUCOSE,RANDOM 240 mg/dL (70-110); POTASSIUM 4.2 mmol/L (3.6-5.0); SODIUM 135 mmol/L (132-148)
--- NOTE | 2016-08-08 08:05 | PCM.URO ---
Urology Progress Note - Objective Lab Results Last 24 Hours: Laboratory Results - last 24 hr 08/07/16 08/07/16 08/07/16 00:36 06:40 09:00 WBC RBC Hgb Hct MCV MCH MCHC RDW Plt Count MPV Gran % Lymph % (Auto) [place] % (Auto) Eos % (Auto) Baso % (Auto) Gran # Lymph # [place] # Eos # Baso # Sodium Potassium Chloride Carbon Dioxide Anion Gap BUN Creatinine Est GFR ( Amer) Est GFR (Non-Af Amer) Random Glucose Hemoglobin A1c 8.9 H Calcium Urine Color Red Urine Appearance Cloudy Urine pH 6.0 Ur Specific [place] 1.025 Urine Protein 100 H Urine Glucose (UA) >=1000 Urine Ketones Negative Urine Blood Large H Urine Nitrate Negative Urine Bilirubin Negative Urine Urobilinogen 0.2 Ur Leukocyte Esterase Negative Urine RBC Tntc Urine WBC 0 - 2 Ur Epithelial Cells 0 - 2 Urine Bacteria Trace Blood Type Confirm A POSITIVE 08/08/16 08/08/16 07:00 07:00 WBC 7.2 D RBC 4.41 Hgb 11.0 L Hct 33.9 L MCV 76.9 L MCH 24.9 L MCHC 32.4 RDW 16.7 H Plt Count 245 MPV 10.8 Gran % 63.0 Lymph % (Auto) 25.4 [place] % (Auto) 9.4 H Eos % (Auto) 2.1 Baso % (Auto) 0.1 Gran # 4.54 Lymph # 1.8 [place] # 0.7 H Eos # 0.2 Baso # 0.01 Sodium 135 Potassium 4.2 Chloride 102 Carbon Dioxide 25 Anion Gap 12 BUN 19 Creatinine 1.0 Est GFR ( Amer) > 60 Est GFR (Non-Af Amer) > 60 Random Glucose 240 H Hemoglobin A1c Calcium 9.0 Urine Color Urine Appearance Urine pH Ur Specific [place] Urine Protein Urine Glucose (UA) Urine Ketones Urine Blood Urine Nitrate Urine Bilirubin Urine Urobilinogen Ur Leukocyte Esterase Urine RBC Urine WBC Ur Epithelial Cells Urine Bacteria Blood Type Confirm Intake & Output: Intake & Output 08/07/16 08/08/16 08/08/16 18:59 06:59 18:59 Intake Total 400 720 Output Total 400 845 Balance 0 -125 Intake: IV 0 Oral 400 720 Output: Urine 400 845 Urethral (Garcia) 400 845 Other: # Bowel Movements 0 0 Vital Signs: Vital Signs - 24 hr 08/07/16 08/07/16 08/07/16 15:12 16:10 16:25 Temperature 98.2 F 98 F 98 F Pulse Rate 68 105 H 99 H Respiratory 20 14 14 Rate Blood Pressure 115/67 159/95 H 196/91 H O2 Sat by Pulse 95 92 L 92 L Oximetry 08/07/16 08/07/16 08/07/16 16:40 16:55 17:10 Temperature 98 F 98 F 98 F Pulse Rate 104 H 84 84 Respiratory 14 14 14 Rate Blood Pressure 166/117 H 148/79 134/79 O2 Sat by Pulse 92 L 96 96 Oximetry 08/07/16 08/07/16 08/07/16 17:40 18:05 18:26 Temperature 98 F 98.3 F Pulse Rate 78 83 Respiratory 14 20 Rate Blood Pressure 136/76 122/75 134/79 O2 Sat by Pulse 96 90 L Oximetry 08/08/16 07:25 Temperature 99.3 F Pulse Rate 74 Respiratory 20 Rate Blood Pressure 132/83 O2 Sat by Pulse 906 H Oximetry
[2016-08-08] MEDS: Insulin Reg-MEDIUM-Coverage SC SCH ×4 (08:32→22:22)
[2016-08-08] MEDS ORDERED: POLYETHYLENE GLYCOL 3350 17 GM/Dose PACKET PO ONE (08:49)
[2016-08-08] MEDS ORDERED: Mineral Oil Enema 135 ml RC ONE (08:49)
[2016-08-08] MEDS ORDERED: cefTRIAXone 1 gm 1 GM/100 ML BAG IVPB STA (08:50)
[2016-08-08] MEDS ORDERED: Pantoprazole 40 mg EC Tab PO SCH (10:00)
--- NOTE | 2016-08-08 14:26 | CP.PCM.PN ---
<John Peter - Last Filed: 08/08/16 18:02> Subjective - Date & Time of Evaluation Date of Evaluation: 08/08/16 Time of Evaluation: 07:20 - Subjective Subjective: Patient seen and examined this morning with medical attending. Patient reports feeling better compared to admission. Patient states he still has some suprapubic tenderness. Urine output is cloudy in character with a light pink tinge color. As per urology, patient will need further monitoring for hematuria. Lobo will stay in until patient's urine color normalizes and urology indicates. No acute events over night. Urology to plan for outpatient procedure as well, will hold ASA/Plavix. Objective - Vital Signs/Intake and Output Vital Signs (last 24 hours): Temp Pulse Resp BP Pulse Ox 99.3 F 74 20 132/83 906 H 08/08/16 07:25 08/08/16 12:10 08/08/16 07:25 08/08/16 12:10 08/08/16 07:25 Intake and Output: 08/08/16 08/08/16 06:59 18:59 Intake Total 720 240 Output Total 845 300 Balance -125 -60 - Medications Medications: Current Medications Atorvastatin Calcium (Lipitor) 20 mg PO DAILY [facility] Docusate Sodium (Colace) 100 mg PO BID [facility] Last Admin: 08/08/16 12:08 Dose: 100 mg Gabapentin (Neurontin) 300 mg PO DAILY [facility] PRN Reason: Protocol Insulin Human Regular (Humulin R Med) 0 units SC ACHS [facility] PRN Reason: Protocol Last Admin: 08/08/16 11:54 Dose: 7 units Loratadine (Claritin) 10 mg PO DAILY PRN PRN Reason: Allergy symptoms Metoprolol Tartrate (Lopressor) 12.5 mg PO BID [facility] Last Admin: 08/08/16 12:10 Dose: 12.5 mg Montelukast Sodium (Singulair) 10 mg PO DAILY PRN PRN Reason: Allergy symptoms Morphine Sulfate (Morphine) 2 mg IVP Q4H PRN PRN Reason: Pain, moderate (4-7) Last Admin: 08/08/16 08:32 Dose: 2 mg Oxybutynin Chloride (Ditropan Tab) 5 mg PO TID [facility] Last Admin: 08/08/16 13:06 Dose: 5 mg Pantoprazole Sodium (Protonix Ec Tab) 40 mg PO DAILY [facility] - Labs Labs: 08/08/16 07:00 08/08/16 07:00 PT 11.2 Seconds (9.9-11.8) 08/07/16 00:36 INR 1.04 (0.93-1.08) 08/07/16 00:36 APTT 24.9 Seconds (23.7-30.8) 08/07/16 00:36 - Constitutional Appears: No Acute Distress - Head Exam Head Exam: NORMOCEPHALIC - Eye Exam Eye Exam: Normal appearance - ENT Exam ENT Exam: Mucous Membranes Moist - Respiratory Exam Respiratory Exam: NORMAL BREATHING PATTERN - Cardiovascular Exam Cardiovascular Exam: +S1, +S2 - GI/Abdominal Exam GI & Abdominal Exam: Soft - Exam Additional comments: suprapubic tenderness - Neurological Exam Neurological Exam: Alert, Awake, Oriented x3 - Psychiatric Exam Psychiatric exam: Normal Mood - Skin Skin Exam: Intact, Normal Color, Warm Assessment and Plan - Assessment and Plan (Free Text) Assessment: 61 y/o M with PMH of CAD and IDDM presents with hematuria. Pt was seen by Dr. Gonzalez in the ED who states pt will go for cystoscopy in the AM to further evaluate bladder mass and cause of hematuria. Plan: 1. Hematuria S/p Cystoscopy by Dr. Gonzalez Urology consulted, Dr. Gonzalez Urology recommends patient be monitored for hematuria Will need to follow up as outpatient for further urologic procedures, biopsy of bladder mass 2. Hx of CAD with stent placement Will hold ASA and plavix at this time 3. IDDM ISS 4. PPX Protonix SCDs Seen, reviewed, and discussed with attending <Josh Grant - Last Filed: 08/09/16 07:19> Objective - Vital Signs/Intake and Output Vital Signs (last 24 hours): Temp Pulse Resp BP Pulse Ox 98.9 F 76 20 116/77 95 08/08/16 16:00 08/08/16 17:24 08/08/16 16:00 08/08/16 17:24 08/08/16 16:00 Intake and Output: 08/09/16 08/09/16 06:59 18:59 Intake Total 660 Output Total 1125 Balance -465 - Medications Medications: Current Medications Atorvastatin Calcium (Lipitor) 20 mg PO DAILY [facility] Docusate Sodium (Colace) 100 mg PO BID [facility] Last Admin: 08/08/16 17:24 Dose: 100 mg Gabapentin (Neurontin) 300 mg PO DAILY [facility] PRN Reason: Protocol Insulin Human Regular (Humulin R Med) 0 units SC ACHS [facility] PRN Reason: Protocol Last Admin: 08/08/16 22:22 Dose: Not Given Loratadine (Claritin) 10 mg PO DAILY PRN PRN Reason: Allergy symptoms Metformin HCl (Glucophage) 500 mg PO DAILY [facility] Metoprolol Tartrate (Lopressor) 12.5 mg PO BID [facility] Last Admin: 08/08/16 17:24 Dose: 12.5 mg Montelukast Sodium (Singulair) 10 mg PO DAILY PRN PRN Reason: Allergy symptoms Morphine Sulfate (Morphine) 2 mg IVP Q4H PRN PRN Reason: Pain, moderate (4-7) Last Admin: 08/08/16 22:42 Dose: 2 mg Oxybutynin Chloride (Ditropan Tab) 5 mg PO TID [facility] Last Admin: 08/08/16 17:24 Dose: 5 mg Pantoprazole Sodium (Protonix Ec Tab) 40 mg PO DAILY [facility] - Labs Labs: 08/09/16 06:54 08/08/16 07:00 PT 11.2 Seconds (9.9-11.8) 08/07/16 00:36 INR 1.04 (0.93-1.08) 08/07/16 00:36 APTT 24.9 Seconds (23.7-30.8) 08/07/16 00:36 Attending/Attestation - Attestation I have personally seen and examined this patient.: Yes I have fully participated in the care of the patient.: Yes I have reviewed all pertinent clinical information, including history, physical exam and plan: Yes Notes (Text): 08/08/16 61 year old male with past medical history of CAD and diabetes who presented with complaint of hematuria. He had lobo placement and cystoscopy was done by urology yesterday. I discussed with Dr. Gonzalez who recommends to continue to hold aspirin/plavix and continue with irrigation prn. Will monitor lobo for hematuria / clotting clearance with plan to repeat cystoscpy with biopsy in few days. Continue with statin and lopressor for CAD. Aspirin/plavix on hold for now as above. Continue with insulin ss for diabetes. He is on miralax and colace for constipation. Also was ordered for enema today. Josh Grant MD Hospitalist.
[2016-08-09 06:56] LABS: ADD MANUAL DIFF? NO
[2016-08-09 07:08] LABS: BASO # 0.01 K/mm3 (0.0-2.0); BASO % 0.2 % (0.0-3.0); EOS # 0.2 (0.0-0.7); EOS % 2.8 % (1.5-5.0); GRAN # 3.52 (1.4-6.5); LYMPH # 1.5 (1.2-3.4); LYMPH % 25.6 % (22.0-35.0); MEAN CELL VOLUME 76.2 fL (80.0-105.0); MEAN CORPUSCULAR HEMOGLOBIN 24.7 pg (25.0-35.0); MEAN CORPUSCULAR HGB CONC 32.4 g/dl (31.0-37.0); MEAN PLATELET VOLUME 10.7 fl (7.0-11.0); MONO # 0.7 (0.1-0.6); MONO % 12.4 % (1.0-6.0); PLATELET COUNT 228 10^3/uL (120.0-450.0); RED CELL DISTRIBUTION WIDTH 16.4 % (11.5-14.5)
[2016-08-09 07:17] LABS: BLOOD UREA NITROGEN 18 mg/dL (7-21); CALCIUM 8.7 mg/dL (8.4-10.5); CARBON DIOXIDE 24 mmol/L (21-33); CHLORIDE 103 mmol/L (95-110); GFR AFRICAN-AMERICAN > 60; GLUCOSE,RANDOM 250 mg/dL (70-110); POTASSIUM 4.1 mmol/L (3.6-5.0); SODIUM 136 mmol/L (132-148)
[2016-08-09 07:41] VITALS: RESP 18
[2016-08-09] MEDS: Insulin Reg-MEDIUM-Coverage SC SCH ×3 (08:03→16:02)
[2016-08-09] MEDS ORDERED: Oxycodone/Acetaminophen 5/325 mg Tab PO PRN (11:57)
--- NOTE | 2016-08-09 15:17 | CP.PCM.DIS ---
<Roland Camacho - Last Filed: 08/10/16 15:40> Provider - Provider Date of Admission: 08/07/16 18:00 Attending physician: Josh Grant MD Primary care physician: Shari Gonzalez MD Consults: Urology: Xi Gonzalez Time Spent in preparation of Discharge (in minutes): 45 Hospital Course - Lab Results Lab Results: Most Recent Lab Values WBC 6.0 10^3/ul (4.5-11.0) 08/09/16 06:54 RBC 4.33 10^6/uL (3.5-6.1) 08/09/16 06:54 Hgb 10.7 gm/dL (14.0-18.0) L 08/09/16 06:54 Hct 33.0 % (42.0-52.0) L 08/09/16 06:54 MCV 76.2 fL (80.0-105.0) L 08/09/16 06:54 MCH 24.7 pg (25.0-35.0) L 08/09/16 06:54 MCHC 32.4 g/dl (31.0-37.0) 08/09/16 06:54 RDW 16.4 % (11.5-14.5) H 08/09/16 06:54 Plt Count 228 10^3/uL (120.0-450.0) 08/09/16 06:54 MPV 10.7 fl (7.0-11.0) 08/09/16 06:54 Gran % 59.0 % (50.0-68.0) 08/09/16 06:54 Lymph % (Auto) 25.6 % (22.0-35.0) 08/09/16 06:54 [place] % (Auto) 12.4 % (1.0-6.0) H 08/09/16 06:54 Eos % (Auto) 2.8 % (1.5-5.0) 08/09/16 06:54 Baso % (Auto) 0.2 % (0.0-3.0) 08/09/16 06:54 Gran # 3.52 (1.4-6.5) 08/09/16 06:54 Lymph # 1.5 (1.2-3.4) 08/09/16 06:54 [place] # 0.7 (0.1-0.6) H 08/09/16 06:54 Eos # 0.2 (0.0-0.7) 08/09/16 06:54 Baso # 0.01 K/mm3 (0.0-2.0) 08/09/16 06:54 PT 11.2 Seconds (9.9-11.8) 08/07/16 00:36 INR 1.04 (0.93-1.08) 08/07/16 00:36 APTT 24.9 Seconds (23.7-30.8) 08/07/16 00:36 Sodium 136 mmol/L (132-148) 08/09/16 06:54 Potassium 4.1 mmol/L (3.6-5.0) 08/09/16 06:54 Chloride 103 mmol/L (95-110) 08/09/16 06:54 Carbon Dioxide 24 mmol/L (21-33) 08/09/16 06:54 Anion Gap 13 (10-20) 08/09/16 06:54 BUN 18 mg/dL (7-21) 08/09/16 06:54 Creatinine 1.0 mg/dL (0.5-1.4) 08/09/16 06:54 Est GFR ( Amer) > 60 08/09/16 06:54 Est GFR (Non-Af Amer) > 60 08/09/16 06:54 Random Glucose 250 mg/dL (70-110) H 08/09/16 06:54 Hemoglobin A1c 8.9 % (4.2-6.5) H 08/07/16 06:40 Calcium 8.7 mg/dL (8.4-10.5) 08/09/16 06:54 Total Bilirubin 0.6 mg/dL (0.2-1.3) 08/07/16 06:40 AST 34 U/L (15-59) 08/07/16 06:40 ALT 34 U/L (7-56) 08/07/16 06:40 Alkaline Phosphatase 60 U/L (38-133) 08/07/16 06:40 Total Protein 7.7 g/dL (5.8-8.3) 08/07/16 06:40 Albumin 3.9 g/dL (3.0-4.8) 08/07/16 06:40 Globulin 3.7 gm/dL 08/07/16 06:40 Albumin/Globulin Ratio 1.1 (1.1-1.8) 08/07/16 06:40 Prostate Specific Ag 0.7 ng/mL (0.00-2.5) 08/08/16 07:00 Urine Color Red (YELLOW) 08/07/16 09:00 Urine Appearance Cloudy (CLEAR) 08/07/16 09:00 Urine pH 6.0 (4.7-8.0) 08/07/16 09:00 Ur Specific [place] 1.025 (1.005-1.035) 08/07/16 09:00 Urine Protein 100 mg/dL (<30 mg/dL) H 08/07/16 09:00 Urine Glucose (UA) >=1000 mg/dL (NEGATIVE) 08/07/16 09:00 Urine Ketones Negative mg/dL (NEGATIVE) 08/07/16 09:00 Urine Blood Large (NEGATIVE) H 08/07/16 09:00 Urine Nitrate Negative (NEGATIVE) 08/07/16 09:00 Urine Bilirubin Negative (NEGATIVE) 08/07/16 09:00 Urine Urobilinogen 0.2 E.U./dL (<1 E.U./dL) 08/07/16 09:00 Ur Leukocyte Esterase Negative Leydi/uL (NEGATIVE) 08/07/16 09:00 Urine RBC Tntc /hpf (0-2) 08/07/16 09:00 Urine WBC 0 - 2 /hpf (0-6) 08/07/16 09:00 Ur Epithelial Cells 0 - 2 /hpf (0-5) 08/07/16 09:00 Urine Bacteria Trace (NEG) 08/07/16 09:00 Blood Type A POSITIVE 08/07/16 06:40 Blood Type Confirm A POSITIVE 08/07/16 00:36 Antibody Screen Negative 08/07/16 06:40 BBK History Checked No verified bt 08/07/16 06:40 - Hospital Course Hospital Course: Upon Admission: 61yo M with PMHx of CAD s/p stents (6 months ago) and DM here for evaluation of a clogged urinary catheter and hematuria. CT Abd/Pelvis showed bladder mass and lesion on R kidney. Patient was discharged from the ED the day prior to arrival with Keflex and follow up with Dr. Gonzalez, however, he returned due to urine leak around catheter. Patient was taken to the OR for cystoscopy by Urology, Dr. Gonzalez, who replaced lobo and kept patient overnight for monitoring. Lobo output cleared up. Patient was asked to hold Asa/Plavix until follow up with Dr. Gonzalez and his software verification engineer. Patient hospital course was complicated with him having purulent drainage expressed from around the catheter. Urinalysis was negative, Urine Cx negative. Dr. Gonzalez made aware and requested removal of lobo. Patient voided 300cc of clear urine prior to being discharged. Patient was asked to take Cipro 500mg PO BID for 7 days and was also given a prescription for Percocet. Patient was asked to follow up with Dr. Gonzalez within the next week. Patient understands and agrees with plan. 1. Hematuria 2. Lower Urinary Tract infection; Cipro 500mg PO BID for 7 days 3. Hx of CAD; hold ASA/Plavix until followup with Urology and Cardiology Upon Discharge: Patient is cleared for discharge as per Dr. Grant 1. Follow up with your Primary Care Physician within 1 week 2. Follow up with Urology, Dr. Gonzalez upon discharge. Call for appointment 3. Follow up with your Can Stacker within one week 4. Hold Aspirin and Plavix until follow up with Urology and Cardiology 5. Take New antibiotics as directed. Dr. Gonzalez to recommend continued treatment upon evaluation within one week. 6. Return to the ER with any concerning symptoms New Prescriptions: 1. Percocet 5/325mg PO q6 prn #8/0 2. Cipro 500mg PO BID #14/0 Discharge Exam - Head Exam Head Exam: ATRAUMATIC, NORMAL INSPECTION, NORMOCEPHALIC - Eye Exam Eye Exam: EOMI. absent: Scleral icterus - ENT Exam ENT Exam: Mucous Membranes Moist - Respiratory Exam Respiratory Exam: Clear to PA & Lateral, NORMAL BREATHING PATTERN, UNREMARKABLE. absent: Decreased Breath Sounds, Wheezes, Respiratory Distress - Cardiovascular Exam Cardiovascular Exam: RRR, +S1, +S2. absent: JVD - GI/Abdominal Exam GI & Abdominal Exam: Soft. absent: Distended, Rebound, Rigid, Tenderness - Exam Additional comments: Purulent discharge expressed from uretheral meatus around placed lobo. Urine in lobo bag: light yellow, no apparent cloudiness. Lobo removed prior to discharge. post-removal, voided 300cc of clear yellow urine as reported by nursing staff. - Extremities Exam Extremities exam: normal inspection - Neurological Exam Neurological exam: Alert, Oriented x3 - Psychiatric Exam Psychiatric exam: Normal Affect, Normal Mood - Skin Skin Exam: Dry, Intact, Normal Color, Warm Discharge Plan - Discharge Medications Prescriptions: Ciprofloxacin HCl [Cipro] 500 mg PO BID #14 tablet oxyCODONE/Acetaminophen [Percocet 5/325 mg Tab] 1 ea PO Q6H PRN #8 tab PRN Reason: Pain, Moderate (4-7) - Follow Up Plan Condition: GOOD Disposition: HOME/ ROUTINE Instructions: Acute Hematuria (DC) Additional Instructions: Patient is cleared for discharge as per Dr. Grant 1. Follow up with your Primary Care Physician within 1 week 2. Follow up with Urology, Dr. Gonzalez upon discharge. Call for appointment 3. Follow up with your Can Stacker within one week 4. Hold Aspirin and Plavix until follow up with Urology and Cardiology 5. Take New antibiotics as directed. Dr. Gonzalez to recommend continued treatment upon evaluation within one week. 6. Return to the ER with any concerning symptoms New Prescriptions: 1. Percocet 5/325mg PO q6 prn #8/0 2. Cipro 500mg PO BID #14/0 Referrals: Aiden Gonzalez MD [Staff Provider] - <Josh Grant - Last Filed: 08/10/16 21:40> Provider - Provider Date of Admission: 08/07/16 18:00 Attending physician: Josh Grant MD Primary care physician: Shari Gonzalez MD Hospital Course - Lab Results Lab Results: Most Recent Lab Values WBC 6.0 10^3/ul (4.5-11.0) 08/09/16 06:54 RBC 4.33 10^6/uL (3.5-6.1) 08/09/16 06:54 Hgb 10.7 gm/dL (14.0-18.0) L 08/09/16 06:54 Hct 33.0 % (42.0-52.0) L 08/09/16 06:54 MCV 76.2 fL (80.0-105.0) L 08/09/16 06:54 MCH 24.7 pg (25.0-35.0) L 08/09/16 06:54 MCHC 32.4 g/dl (31.0-37.0) 08/09/16 06:54 RDW 16.4 % (11.5-14.5) H 08/09/16 06:54 Plt Count 228 10^3/uL (120.0-450.0) 08/09/16 06:54 MPV 10.7 fl (7.0-11.0) 08/09/16 06:54 Gran % 59.0 % (50.0-68.0) 08/09/16 06:54 Lymph % (Auto) 25.6 % (22.0-35.0) 08/09/16 06:54 [place] % (Auto) 12.4 % (1.0-6.0) H 08/09/16 06:54 Eos % (Auto) 2.8 % (1.5-5.0) 08/09/16 06:54 Baso % (Auto) 0.2 % (0.0-3.0) 08/09/16 06:54 Gran # 3.52 (1.4-6.5) 08/09/16 06:54 Lymph # 1.5 (1.2-3.4) 08/09/16 06:54 [place] # 0.7 (0.1-0.6) H 08/09/16 06:54 Eos # 0.2 (0.0-0.7) 08/09/16 06:54 Baso # 0.01 K/mm3 (0.0-2.0) 08/09/16 06:54 PT 11.2 Seconds (9.9-11.8) 08/07/16 00:36 INR 1.04 (0.93-1.08) 08/07/16 00:36 APTT 24.9 Seconds (23.7-30.8) 08/07/16 00:36 Sodium 136 mmol/L (132-148) 08/09/16 06:54 Potassium 4.1 mmol/L (3.6-5.0) 08/09/16 06:54 Chloride 103 mmol/L (95-110) 08/09/16 06:54 Carbon Dioxide 24 mmol/L (21-33) 08/09/16 06:54 Anion Gap 13 (10-20) 08/09/16 06:54 BUN 18 mg/dL (7-21) 08/09/16 06:54 Creatinine 1.0 mg/dL (0.5-1.4) 08/09/16 06:54 Est GFR ( Amer) > 60 08/09/16 06:54 Est GFR (Non-Af Amer) > 60 08/09/16 06:54 Random Glucose 250 mg/dL (70-110) H 08/09/16 06:54 Hemoglobin A1c 8.9 % (4.2-6.5) H 08/07/16 06:40 Calcium 8.7 mg/dL (8.4-10.5) 08/09/16 06:54 Total Bilirubin 0.6 mg/dL (0.2-1.3) 08/07/16 06:40 AST 34 U/L (15-59) 08/07/16 06:40 ALT 34 U/L (7-56) 08/07/16 06:40 Alkaline Phosphatase 60 U/L (38-133) 08/07/16 06:40 Total Protein 7.7 g/dL (5.8-8.3) 08/07/16 06:40 Albumin 3.9 g/dL (3.0-4.8) 08/07/16 06:40 Globulin 3.7 gm/dL 08/07/16 06:40 Albumin/Globulin Ratio 1.1 (1.1-1.8) 08/07/16 06:40 Prostate Specific Ag 0.7 ng/mL (0.00-2.5) 08/08/16 07:00 Urine Color Red (YELLOW) 08/07/16 09:00 Urine Appearance Cloudy (CLEAR) 08/07/16 09:00 Urine pH 6.0 (4.7-8.0) 08/07/16 09:00 Ur Specific [place] 1.025 (1.005-1.035) 08/07/16 09:00 Urine Protein 100 mg/dL (<30 mg/dL) H 08/07/16 09:00 Urine Glucose (UA) >=1000 mg/dL (NEGATIVE) 08/07/16 09:00 Urine Ketones Negative mg/dL (NEGATIVE) 08/07/16 09:00 Urine Blood Large (NEGATIVE) H 08/07/16 09:00 Urine Nitrate Negative (NEGATIVE) 08/07/16 09:00 Urine Bilirubin Negative (NEGATIVE) 08/07/16 09:00 Urine Urobilinogen 0.2 E.U./dL (<1 E.U./dL) 08/07/16 09:00 Ur Leukocyte Esterase Negative Leydi/uL (NEGATIVE) 08/07/16 09:00 Urine RBC Tntc /hpf (0-2) 08/07/16 09:00 Urine WBC 0 - 2 /hpf (0-6) 08/07/16 09:00 Ur Epithelial Cells 0 - 2 /hpf (0-5) 08/07/16 09:00 Urine Bacteria Trace (NEG) 08/07/16 09:00 Blood Type A POSITIVE 08/07/16 06:40 Blood Type Confirm A POSITIVE 08/07/16 00:36 Antibody Screen Negative 08/07/16 06:40 BBK History Checked No verified bt 08/07/16 06:40 Attending/Attestation - Attestation I have personally seen and examined this patient.: Yes I have fully participated in the care of the patient.: Yes I have reviewed all pertinent clinical information, including history, physical exam and plan: Yes Notes (Text): 08/10/16 21:37 61 year old male with past medical history of CAD and diabetes who presented with complaint of hematuria. He had lobo placement and cystoscopy was done by urology. Hematuria began to clear with irrigation. Lobo was removed today and patient is discharged home today on po antibiotics. He is to follow up with urology and cardiology as outpatient within one week. Hold aspirin and plavix for now for planned repeat cystoscopy with biopsy until cleared by urology / cardiology. Josh Grant MD Hospitalist.
[2016-08-09 16:34] VITALS: BP 124/71; PULSE 52; TEMP 98; O2SAT 96
--- NOTE | 2016-08-13 12:31 | PN ---
DATE: 08/08/2016 Please see the admission history and physical, consultation and the operative report from 08/06 and 0 08/07 office note. Mr. Us is currently resting comfortably plan. PAST MEDICAL, no change. DIAGNOSES: Gross hematuria, urinary retention, hard prostate. Concerns for malignancy , urinary retention and hematuria. History of voiding dysfunction. PLAN: We are going to give him . We would like with a Garcia and not Garcia . We are going to observe the patient. If he does not voiding trial as an outpatient. plans will follow. . Curry Gonzalez MD cc: [id number] TT: 08/13/2016 09:29:59 Confirmation # [id number] Dictation # [id number] courtney
--- NOTE | 2016-08-13 12:31 | OP ---
PROCEDURE DATE: 08/07/2016 PREOPERATIVE DIAGNOSIS: Gross hematuria, urinary retention. PROCEDURE: Cystoscopy and evacuation of clots. COMPLICATIONS: There were no complications. FINDINGS: 1. There is a normal anterior urethra, no strictures. 2. There is a visually occlusive ____ at the bladder neck ____. 3. ____ the bladder ____ blood. There really is ____ tissue. We ended up fulgurating gently that area. I will explain below more why in detail, but basically I d id not want to leave the tissue tight, but I did not want to do a formal biopsy when the patient is o n Plavix. See below addendum and plan, but I did not want to stop the bleeding. See the body of the report. The name of the procedure is cysto, evacuation of the ____, and a fulgur ation gently of the bleeding sites. Multiple pictures were taken. ____ the mucosa ____ (____leakage of the Garcia or ____ there is no dis tinct lesion, but it is definitely not normal in appearance). At the termination of the procedure, there are no blood clots visible and the urine is clear with tra ction. The ____ findings are normal. INDICATIONS: See history and physical and the consultation. A very pleasant gentleman ____. He shola tyler went to the ER on Thursday night. They inserted a Garcia catheter. blood in the urine and then subsequently, it sounds like the patient went home and then came right back in. Catheter was leaking on the side, so they ____. I actually spoke to ____, the ER doctor, about it. He had emptied out the bladder. The patient felt better. He did ____, the catheter was removed. Then the next day, that was on 08/05 in the evening hours ____. Then on 08/06, the patient came to my o ffice. That is yesterday. I inserted a Garcia catheter via the urethra. He felt all better. He was actually ____ before when he walked into the office, he was writhing in pain. After this, we inserted a Garcia. He felt better, but I explained to the patient my concern with ____ , so then last evening, 08/06, he actually came to the Emergency Room. I ____ myself. They inserted a larger bore catheter, but after discussing options with the patient, the patient was feeling a little bit better. The blood had cleared up nicely. I ____ the patient with the catheter. ____ the bleeding ____ and it will happen again. In fact, mirna menendez, we irrigated 3 times. I ____ want to wait or not as the catheter was removed, inserted, removed, inserted, but now he is he re for the above procedure. The procedure is cysto, evacuation of clot and fulguration. PROCEDURE: After obtaining informed consent, the patient was placed on the table. Routine monitors were placed. Timeouts were ____ to confirm patient, positioning, etc. Cystoscope via the urethra. The anterior urethra ____, visually conclusive Essentially a large prostate at the bladder neck ____ more than a few minutes after I irrigated out c lots. There is erythema and bleeding. First, we noted a tremendous amount of clots that I irrigated out for a while and copious irrigation until we got it clear Now, we inspected the area at the bladder neck. There is ____ noted With a little spurt of ____. I did not want to do a biopsy though since he is placed on the Plavix. ____, we stopped. See below addendum. Either way, we just gently cauterized, did not want o ____. The remainder of the bladder otherwise i s relatively normal limits. Just some erythema ____ indwelling Garcia ____. At this point, connected Garcia to traction and ____ clear. We had fulgurated that bleeding site. The patient tolerated without complication. ____ rectal exam ____ nodule, but it is much higher than I would expect. It ____ prostate. Whether it is prostate malignancy or not I do not know yet. See plan below. The patient tolerated this procedure well without complications, brought to the recovery room in stab le condition with clear urine. ADDENDUM: The patient will need serum PSA. ____ in the morning ____, but we definitely have to star t somewhere. ____ prostate gland ____ PSA, I am going to recommend a prostate biopsy. I am also going to recommen d a bladder biopsy. Whether we do the ____ or not, the ____ and the like, we will have to discuss. I will discuss this all further with the patient. Meanwhile, the patient ____, we will make sure to reach out to as ____ he has been on Plavix ____. So further plans will follow depending on what we find clinically. Curry Gonzalez MD cc: [phone] TT: 08/13/2016 11:29:27 tn 08/13/2016 11:29:43
== END 2016-08-09 18:58 | disposition home or self-care (01) ==
LOC: ED 21:27 → ERH 23:42 → 5RNO 08-07 01:45 → OBSVTOIN 08-07 18:00 → INTOOBSV 08-07 18:00
PROVIDERS: ADMIT Internal Medicine; ATTEND Internal Medicine
DX: T83.098A Other mechanical complication of other urinary catheter, initial encounter (principal); T83.83XA Hemorrhage due to genitourinary prosthetic devices, implants and grafts, initial encounter; N39.0 Urinary tract infection, site not specified; R31.9 Hematuria, unspecified; R33.8 Other retention of urine; I25.10 Atherosclerotic heart disease of native coronary artery without angina pectoris; E11.9 Type 2 diabetes mellitus without complications; K59.00 Constipation, unspecified; Z79.4 Long term (current) use of insulin; Y84.6 Urinary catheterization as the cause of abnormal reaction of the patient, or of later complication, without mention of misadventure at the time of the procedure; Y92.098 Other place in other non-institutional residence as the place of occurrence of the external cause; Z95.5 Presence of coronary angioplasty implant and graft; Z82.3 Family history of stroke
CPT/HCPCS: 36415; 52001; 52214; 71010; 80048; 80053; 81001; 83036; 84153; 85025; 85027; 85610; 85730; 86850; 86900; 87086; 88304; 93005; 99285; C9113; G0378; J0696; J2001; J2250; J2270; J2704; J3010

== ENCOUNTER 2016-08-20 06:21 | Day surgery (SDC) | payer OTHER, MEDICAID ==
[2016-08-20 06:45] VITALS: BMI 29.2
--- NOTE | 2016-08-20 07:18 | ED PDOC ---
Arrival/HPI - General Historian: Patient - History of Present Illness Time/Duration: > week Symptom Onset: Gradual Symptom Course: Unchanged Quality: Aching, Burning Severity Level: 5 Activities at Onset: Rest Context: Home - General Chief Complaint: Male Genitourinary Time Seen by Provider: 08/20/16 07:04 - History of Present Illness Narrative History of Present Illness (Text): 08/20/16 07:29 This is a 61Y M with PMH of HTN, DM, CAD s/p 4 stents who came to ED for burning with urination for one week. He was sent in by his urologist, Dr. Gonzalez. He had a cystoscopy last week for hematuria and since then he has been having dysuria and increased frequency. Patient also reports he saw scant blood in his urine 2 days ago. He denies fever, chills, CP, SOB, n/v/d, numbness/ tingling. Of note, patient was [place]13[place]16 [place] [facility] [place] and drainage from his urinary catheter. The catheter was removed and patient was given Cipro and percocet. Patient finished his course of antibiotics , but continues to have dysuria. His ASA and Plavix were put on hold at last admission for the hematuria. (Teodora Larsen) Past Medical History - Provider Review Nursing Documentation Reviewed: Yes - Cardiac Hx Pacemaker: No - Pulmonary Hx Respiratory Disorders: No - Neurological Hx Paralysis: No - HEENT Hx HEENT Disorder: No - Renal Hx Renal Disorder: No - Endocrine/Metabolic Hx Endocrine Disorders: No - Hematological/Oncological Hx Blood Transfusions: No - Integumentary Hx Dermatological Disorder: No - Musculoskeletal/Rheumatological Hx Musculoskeletal Disorders: Yes - Gastrointestinal Hx Gastrointestinal Disorders: No - Genitourinary/Gynecological Other/Comment: URINARY RETENTION - Psychiatric Hx Psychophysiologic Disorder: No Hx Substance Use: No - Surgical History Hx Coronary Stent: Yes - Anesthesia Hx Anesthesia Reactions: No Hx Malignant Hyperthermia: No - Suicidal Assessment Feels Threatened In Home Enviroment: No Family/Social History - Physician Review Nursing Documentation Reviewed: Yes Family/Social History: Hypertension Smoking Status: Never Smoked Hx Alcohol Use: No Hx Substance Use: No Allergies/Home Meds Allergies/Adverse Reactions: Allergies No Known Allergies Allergy (Unverified 08/06/16 09:15) Home Medications: Home Meds Medication Instructions Recorded Confirmed Atorvastatin [Lipitor] 20 mg PO DAILY 08/07/16 08/20/16 Celecoxib [celeBREX] 200 mg PO DAILY 08/07/16 08/20/16 Gabapentin [Neurontin] 300 mg PO DAILY 08/07/16 08/20/16 Loratadine [Claritin] 10 mg PO DAILY 08/07/16 08/20/16 Montelukast [Singulair] 10 mg PO DAILY 08/07/16 08/20/16 metFORMIN [glucOPHAGE] 500 mg PO DAILY 08/07/16 08/20/16 Aspirin [Ecotrin] 81 mg PO DAILY 08/19/16 08/20/16 Clopidogrel [Plavix] 75 mg PO DAILY 08/19/16 08/20/16 Fenofibrate Nanocrystallized 145 mg PO DAILY 08/19/16 08/20/16 [Fenofibrate] Insulin Glargine, Recombina 60 unit SC HS PRN 08/19/16 08/20/16 [Lantus] Insulin Lispro Mix 75/25 [humalog 20 units SC ACTID 08/19/16 08/20/16 Mix 75/25 75 U/Ml-25 U/Ml 10 Ml] Review of Systems - Physician Review All systems were reviewed & negative as marked: Yes - Review of Systems Constitutional: Normal. absent: Fevers Eyes: Normal. absent: Vision Changes ENT: Normal. absent: Hearing Changes, Sore Throat Respiratory: Normal. absent: SOB, Cough Cardiovascular: Normal. absent: Chest Pain, Palpitations, Edema Gastrointestinal: Normal. absent: Abdominal Pain, Diarrhea, Nausea, Vomiting Genitourinary Male: Dysuria, Frequency, Hematuria Musculoskeletal: Normal. absent: Arthralgias, Back Pain Skin: Normal. absent: Rash Neurological: Normal. absent: Headache, Dizziness Endocrine: Normal. absent: Diaphoresis Hemo/Lymphatic: Normal. absent: Easy Bleeding Psychiatric: Normal. absent: Anxiety, Depression Physical Exam Vital Signs Reviewed: Yes Temperature: Afebrile Blood Pressure: Normal Pulse: Regular Respiratory Rate: Normal Appearance: Positive for: Well-Appearing, Non-Toxic, Comfortable Pain Distress: None Mental Status: Positive for: Alert and Oriented X 3 - Systems Exam Head: Present: Atraumatic, Normocephalic Pupils: Present: PERRL Extroacular Muscles: Present: EOMI Conjunctiva: Present: Normal Mouth: Present: Moist Mucous Membranes Neck: Present: Normal Range of Motion Respiratory/Chest: Present: Clear to Auscultation, Good Air Exchange. No: Respiratory Distress, Accessory Muscle Use Cardiovascular: Present: Regular Rate and Rhythm, Normal S1, S2. No: Murmurs Abdomen: Present: Normal Bowel Sounds. No: Tenderness, Distention, Peritoneal Signs Back: Present: Normal Inspection Upper Extremity: Present: Normal Inspection. No: Cyanosis, Edema Lower Extremity: Present: Normal Inspection. No: Edema Neurological: Present: GCS=15, CN II-XII Intact, Speech Normal Skin: Present: Warm, Dry, Normal Color. No: Rashes Psychiatric: Present: Alert, Oriented x 3, Normal Insight, Normal Concentration Vital Signs Temp Pulse Resp BP Pulse Ox 08/20/16 08:08 98 F 64 20 116/63 95 08/20/16 06:45 98.8 F 73 18 123/76 99 Medical Decision Making Re-evaluation Time: 08:12 Reassessment Condition: Unchanged - RAD Interpretation Sausage Canner: ED Physician - EKG Interpretation Interpreted by ED Physician: Yes Type: 12 lead EKG Comparison: Similar to previous EKG ED Course and Treatment: 08/20/16 07:37 Impression: This is a 61Y M with PMH DM, HTN, CAD s/p stents here for dysuria and hematuria x 1 week. He was sent to ED by Dr. Gonzalez. DDX: UTI, cystitis, urthetral stricture Plan: -- CBC, CMP, U/A, Uculture, type and cross -- CXR -- Reassess Prior Visits: Notes and results from previous visits were reviewed. 08/20/16 08:12 Progress Note: Patient transferred to same day surgery before work up complete. (Teodora Larsen) Patient Seen With Resident: In agreement with resident note. Patient was seen and evaluated with resident, came up with plan and treatment together. (Deacon Noel DO) - Lab Interpretations Lab Results: 08/20/16 07:30 08/20/16 07:30 Lab Results 08/20/16 07:30: PT 11.2, INR 1.04, APTT 25.4 08/20/16 07:30: Blood Type A POSITIVE, Antibody Screen Negative, BBK History Checked Patient has bt 08/20/16 07:30: Sodium 139, Potassium 4.4, Chloride 108 H, Carbon Dioxide 26, Anion Gap 9 L, BUN 14, Creatinine 0.8, Est GFR ( Amer) > 60, Est GFR (Non -Af Amer) > 60, Random Glucose 180 H, Calcium 9.3, Total Bilirubin 0.4, AST 29, ALT 37, Alkaline Phosphatase 62, Total Protein 7.0, Albumin 3.9, Globulin 3.1, Albumin/Globulin Ratio 1.3 08/20/16 07:30: Urine Color Yellow, Urine Appearance Clear, Urine pH 5.5, Ur Specific [place] >= 1.030, Urine Protein 30 H, Urine Glucose (UA) Negative, Urine Ketones Negative, Urine Blood Moderate H, Urine Nitrate Negative, Urine Bilirubin Negative, Urine Urobilinogen 0.2, Ur Leukocyte Esterase Negative, Urine RBC 25 - 30, Urine WBC 5 - 10, Ur Epithelial Cells 0 - 2, Urine Bacteria Few 08/20/16 07:30: WBC 4.0 L D, RBC 4.38, Hgb 10.7 L, Hct 34.0 L, MCV 77.6 L, MCH 24.4 L, MCHC 31.5, RDW 16.8 H, Plt Count 309, MPV 10.4 - RAD Interpretation Narrative RAD Interpretations (Text): 08/20/16 07:40 CXR showed no active disease. (Teodora Larsen) Radiology Orders: 08/20/16 07:15 CXR [CHEST PORTABLE] [RAD] Stat - EKG Interpretation EKG Interpretation (Text): 08/20/16 07:39 HR 59. Intervals within normal limits. Sinus bradycardia. (Teodora Larsen) - Medication Orders Current Medication Orders: Hydromorphone HCl (Dilaudid) 0.5 mg IVP Q15M PRN PRN Reason: Pain, moderate (4-7) Stop: 08/20/16 10:22 Lactated Ringer's (Lactated Ringer's) 1,000 mls @ 75 mls/hr IV .[id number] GALINDO Stop: 08/20/16 10:22 Ondansetron HCl (Zofran Inj) 4 mg IVP ONCE PRN PRN Reason: Nausea/Vomiting Discontinued Medications Ceftriaxone Sodium (Rocephin) Confirm Administered Dose 1 gm .ROUTE .[facility]-MED ONE Stop: 08/20/16 08:55 Ephedrine (Ephedrine) Confirm Administered Dose 50 mg .ROUTE .[facility]-MED ONE Stop: 08/20/16 08:52 Fentanyl (Fentanyl) Confirm Administered Dose 100 mcg .ROUTE .ST[facility]-MED ONE Stop: 08/20/16 08:48 Gentamicin Sulfate (Gentamicin) Confirm Administered Dose 80 mg .ROUTE .STK-MED ONE Stop: 08/20/16 08:55 Lidocaine (Lidocaine (Bolus)) Confirm Administered Dose 100 mg .ROUTE .STK-MED ONE Stop: 08/20/16 08:51 Midazolam HCl (Versed Inj) Confirm Administered Dose 2 mg .ROUTE .STK-MED ONE Stop: 08/20/16 08:49 Propofol (Diprivan) Confirm Administered Dose 200 mg .ROUTE .STK-MED ONE Stop: 08/20/16 08:48 Disposition/Present on Arrival - Present on Arrival Any Indicators Present on Arrival: No History of DVT/PE: No History of Uncontrolled Diabetes: No Urinary Catheter: No History of Decub. Ulcer: No History Surgical Site Infection Following: None - Disposition Have Diagnosis and Disposition been Completed?: Yes Disposition Time: 08:13 Patient Plan: Discharge - Disposition Diagnosis: Hematuria Disposition: HOSPITALIZED Condition: FAIR Discharge Instructions (ExitCare): Acute Hematuria (GEN) Print Language: KOREAN Referrals: Олег Shaikh MD [Primary Care Provider] - Follow up with primary Aiden Gonzalez MD [Staff Provider] - Follow up with primary
[2016-08-20 07:55] LABS: MEAN CELL VOLUME 77.6 fL (80.0-105.0); MEAN CORPUSCULAR HEMOGLOBIN 24.4 pg (25.0-35.0); MEAN CORPUSCULAR HGB CONC 31.5 g/dl (31.0-37.0); MEAN PLATELET VOLUME 10.4 fl (7.0-11.0); PH,URINE 5.5 (4.7-8.0); RED CELL DISTRIBUTION WIDTH 16.8 % (11.5-14.5); URINE BILIRUBIN NEGATIVE (NEGATIVE); URINE BLOOD MODERATE (NEGATIVE); URINE GLUCOSE (UA) NEGATIVE (NEGATIVE); URINE KETONE NEGATIVE (NEGATIVE); URINE LEUKOCYTE ESTERASE NEGATIVE Leu/uL (NEGATIVE); URINE PROTEIN 30 mg/dL (<30 mg/dL); URINE UROBILINOGEN 0.2 E.U./dL (<1 E.U./dL)
[2016-08-20 07:58] LABS: ALB/GLOB RATIO 1.3 (1.1-1.8); ALKALINE PHOSPHATASE 62 U/L (38-133); ALT/SGPT 37 U/L (7-56); AST/SGOT 29 U/L (15-59); BILIRUBIN,TOTAL 0.4 mg/dL (0.2-1.3); BLOOD UREA NITROGEN 14 mg/dL (7-21); CALCIUM 9.3 mg/dL (8.4-10.5); CARBON DIOXIDE 26 mmol/L (21-33); CHLORIDE 108 mmol/L (98-107); GFR AFRICAN-AMERICAN > 60; GLUCOSE,RANDOM 180 mg/dL (70-110); POTASSIUM 4.4 mmol/L (3.6-5.0); SODIUM 139 mmol/L (132-148)
[2016-08-20 08:02] LABS: URINE APPEARANCE CLEAR (CLEAR); URINE COLOR YELLOW (YELLOW)
[2016-08-20 08:04] LABS: INR 1.04 (0.93-1.08); PARTIAL THROMBOPLASTIN TIME 25.4 Seconds (23.7-30.8); URINE BACTERIA FEW (NEG); URINE EPITHELIAL CELLS 0 - 2 /hpf (0-5); URINE RBC 25 - 30 /hpf (0-2)
[2016-08-20] MEDS ORDERED: Lactated Ringer's 1,000 ML IV SCH (08:21)
[2016-08-20] MEDS ORDERED: HYDROmorphone 0.5 mg/0.5 ml ISec IVP PRN (08:21)
[2016-08-20] MEDS ORDERED: Propofol 10 mg/ml Inj (20 ML) ONE (08:47)
[2016-08-20] MEDS ORDERED: Midazolam 2 MG/2 ML VIAL ONE (08:48)
[2016-08-20] MEDS ORDERED: ePHEDrine 50 mg/ml Inj ONE (08:51)
[2016-08-20] MEDS ORDERED: cefTRIAXone (Rocephin) 1 gm Inj ONE (08:54)
[2016-08-20] MEDS ORDERED: Gentamicin 80 mg/2mL Inj. ONE (08:54)
--- NOTE | 2016-08-20 09:09 | RAD ---
HISTORY: screening COMPARISON: 08/06/2016 FINDINGS: LUNGS: No active pulmonary disease. PLEURA: No significant pleural effusion identified, no pneumothorax apparent. CARDIOVASCULAR: Normal. OSSEOUS STRUCTURES: No significant abnormalities. VISUALIZED UPPER ABDOMEN: Normal. OTHER FINDINGS: None. IMPRESSION: No active disease.
--- NOTE | 2016-08-20 09:58 | CARD ---
APPROVED REPORT EKG Measurement Heart [id number] <Conclusion> Sinus bradycardia Otherwise normal ECG
[2016-08-20] MEDS ORDERED: Oxycodone/Acetaminophen 5/325 mg Tab PO STA (10:26)
[2016-08-20] MEDS ORDERED: Oxycodone/Acetaminophen 5/325 mg Tab ONE (10:29)
[2016-08-20 10:30] VITALS: BP 119/70; PULSE 63; RESP 18; TEMP 97.7; O2SAT 94
[2016-08-20] MEDS ORDERED: Oxycodone/Acetaminophen 5/325 mg Tab PO ONE (10:33)
--- NOTE | 2016-09-08 12:04 | OP ---
PROCEDURE DATE: 08/20/2016 PREOPERATIVE DIAGNOSES: Bladder tumor, gross hematuria, elevated PSA. POSTOPERATIVE DIAGNOSES: Bladder tumor, gross hematuria, elevated PSA. PROCEDURES: A cystoscopy, biopsy of a bladder lesion, and fulguration of the base and also a prostat e ultrasound and prostate ultrasound-guided biopsy. COMPLICATIONS: There were none. BLOOD LOSS: Less than 20 mL. INDICATIONS: See history and physical for further details. In brief though, a very pleasant gentlem an who presented with gross hematuria. Initially, he was on Plavix. We could not even biopsy. At t hat point, we just fulgurated. Now, further inspection reveals bladder tumors that he is here for. Further inspection today reveals, the findings of today are basically normal anterior urethra, no str ictures, from the veru on in is visually occlusive. There are bladder lesions right next to each bandar fice. 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 Today, I just did biopsies and fulg urations, but not deep resections. Not full TURBT. See the plans and the addendum below, but ill me ntion here in the indication portion and the findings portion that basically I think the patient need s bilateral stents and then a full TURBT. As well, the patient has a fairly firm prostate. Again, this may be secondary to retention, but his PSA is elevated and fairly firm prostate, so we did an ultrasound and ultrasound-guided prostate biop sy as a separate procedure after the bladder biopsy and fulguration and we took specimens and sent th is to the lab. SPECIMENS SENT: Bladder tumors and also prostate cores. PROCEDURE ITSELF: After obtaining informed consent, the patient was placed on the table, routine mon itors placed, timeouts were called to confirm the patient, positioning, etc. We introduced the cystoscope via the urethra. The anterior urethra is normal, no strictures. From t he veru on in is very visually occlusive, about 2-3 cm in length, visually occlusive. The ureteral orifices identified. There are small lesions next to them. Multiple pictures were take n and saved. These appear mostly to be papillary in origin. I did a little biopsy just to confirm that it is a TCC before proceeding further for my recommendatio ns, but not too deep. Deep enough though that I do believe in my specimen I will have lamina propria. Just to evaluate for the bladder. At this point, we gently fulgurated. We did not remove the tumor. The patient will require TURBT. At this point, with an indwelling Garcia catheter placed to the side, under ultrasound guidance, we di d an ultrasound of the prostate. The prostate volume measured to be about 30 grams plus. We then did random biopsies and sent these for pathologic evaluation. The patient tolerated the proc edure well without complication. ADDENDUM: Most likely, this elevation in PSA is retention related. The patient does have a firm pro state, but again, this all may be retention related. We will see what the biopsy shows. Further plans will follow. Curry Gonzalez MD cc: [id number] TT: 09/08/2016 12:03:36 en
--- NOTE | 2016-09-11 10:46 | OP ---
PROCEDURE DATE: 08/20/2016 This is a repeat of a dictation. I am absolutely positive I have dictated this before. The procedure itself, just for thoroughness, and I see in medical records they are requesting that a report is still needed so, therefore, I am dictating it now. PREOPERATIVE DIAGNOSES: Gross hematuria, elevated prostatic specific antigen, voiding dysfunction. POSTOPERATIVE DIAGNOSES: Gross hematuria, elevated prostatic specific antigen, voiding dysfunction a nd bladder cancer. PROCEDURE: Cystoscopy, bladder biopsy and fulguration, and also prostate ultrasound and prostate ult rasound and biopsy. COMPLICATIONS: There were no complications. BLOOD LOSS: Less than 20 mL. INDICATIONS: See history and physical. This is a pleasant gentleman who presented with gross hematu reinaldo. See many previously dictated notes. He is now here for the above procedure. Previously, first we had to ____ and we just fulgurated to stop bleeding because he is on Plavix. The patient is here now for the above listed procedure. He is no longer bleeding. He is off his medications. The patient has a firm and hard prostate and an elevated PSA and he is here now for the above. PROCEDURE: After obtaining informed consent, the patient was placed on the table, routine monitors p laced, timeouts were called to confirm the patient and positioning. The patient was positioned properly. Timeouts were called confirming patient. We also gave antibiotic prophylaxis. Cystoscope via the urethra, anterior urethra is normal, no stricture ____ visually occlusive about 3 cm. Then we identified bladder tumors, both at the left ureteral orifice and at the right. What we then did, I took a sample, but did not do a full resection. It is too close ____ see the gricel ns and addendum below. I just wanted to ____ tissue diagnosis. We also did an ultrasound-guided pro state biopsy. Prostate ____ is about 30-40 mL. Oddly enough, no specific abnormalities are detected when we did our biopsies. The patient tolerated ____ without complication. A Garcia catheter is passed. I just want to make a comment, the addendum in the plan. The patient will need bilateral stents inse rted and then a full TURBT, and once we do this, we will make further plans and will also see what th e pathology is. Curry Gonzalez MD cc: [id number] TT: 09/11/2016 10:36:35 rn 09/11/2016 09:45:43
--- NOTE | 2016-11-03 10:28 | HP ---
REASON FOR ADMISSION: Gross hematuria. HISTORY OF PRESENT ILLNESS: Mr. Us is a very pleasant gentleman who has voiding dysfunction, gross hematuria, urinary retention and is here now for further diagnosis workup and testing. The plan is to bring the patient to the OR for cystoscopic evaluation and possible TURP. PAST MEDICAL AND SURGICAL HISTORY: As listed on the chart. No history of an OR or CVA. He has underlying retention. SOCIAL HISTORY: Essentially unremarkable. No history of alcohol abuse. Nonsmoker. REVIEW OF SYSTEMS: As listed above, noncontributory. No weight loss, chest pain, or shortness of breath. No constitutional complaints. MEDICATIONS: See chart. ALLERGIES: NONE. PHYSICAL EXAMINATION GENERAL: Well-nourished male in no apparent distress. VITAL SIGNS: Within normal limits and chart. LUNGS: Clear. ABDOMEN: Soft, nontender, and no flank masses. GENITOURINARY: Normal phallus and no discharge. RECTAL: ____. NEUROLOGIC: Otherwise unremarkable. LABORATORY DATA: See chart. Within normal limits. DIAGNOSES: 1. Gross hematuria. 2. Urinary retention. 3. Voiding dysfunction. PLAN: The patient will be put to the OR cystoscopy and TUR. The plan is as follows. We discussed with the patient option, risks, benefits and alternatives. We discussed the voiding dysfunction, we discussed gross hematuria, we discussed incontinence, we discussed urinary retention, and we discussed surgery not working. We discussed all risks and benefits in great detail and the plan is to proceed ahead. The plan is as follows: 1. Antibiotic prophylaxis. 2. Cystoscopy and then further plan will follow. Curry Gonzalez MD
== END 2016-08-20 15:00 | disposition home or self-care (01) ==
LOC: ED 06:21 → OR 06:21 → SDS 07:30 → ED 07:49 → SDS 15:00
PROVIDERS: ATTEND Urology
DX: C67.9 Malignant neoplasm of bladder, unspecified (principal); R31.0 Gross hematuria; I10 Essential (primary) hypertension; I25.10 Atherosclerotic heart disease of native coronary artery without angina pectoris; E11.9 Type 2 diabetes mellitus without complications; Z95.5 Presence of coronary angioplasty implant and graft; Z79.4 Long term (current) use of insulin; Z79.82 Long term (current) use of aspirin
CPT/HCPCS: 52204; 55700; 71010; 80053; 81001; 85027; 85610; 85730; 86850; 86900; 87086; 88305; 93005; 99284; J0696; J1580; J2001; J2250; J2405; J2704; J3010; J7120

== ENCOUNTER 2017-09-14 10:54 | Day surgery (SDC) | payer OTHER ==
[2017-09-14 10:58] VITALS: BMI 28.5
--- NOTE | 2017-09-14 11:14 | ED PDOC ---
Arrival/HPI - General Chief Complaint: Male Genitourinary Time Seen by Provider: 09/14/17 11:02 Historian: Patient - History of Present Illness Narrative History of Present Illness (Text): 09/14/2017 62 year old male, whose PMH includes TN, coronary stents, diabetes, prostate CA , and bladder tumor, who presents to the emergency department complaining of hematuria since [address] Gonzalez advised him to come for evaluation. Patient denies fever, shortness of breath, chest pain, abdominal pain, or other complaints. Time/Duration: < week Symptom Onset: Sudden Symptom Course: Unchanged Context: Home Past Medical History - Provider Review Nursing Documentation Reviewed: Yes - Infectious Disease Hx of Infectious Diseases: None - Cardiac Hx Cardiac Disorders: Yes (CAD STENTS LAST INSERTION JAN 2016) Hx TN: Yes (2001 PER PT) - Pulmonary Hx Respiratory Disorders: No - Neurological Hx Neurological Disorder: No - HEENT Hx HEENT Disorder: Yes Hx Cataracts: Yes (BILAT IOL) - Renal Hx Renal Disorder: No - Endocrine/Metabolic Hx Endocrine Disorders: Yes Hx Diabetes Mellitus Type 2: Yes - Hematological/Oncological Hx Cancer: Yes (prostate CA) - Integumentary Hx Dermatological Disorder: No - Musculoskeletal/Rheumatological Hx Musculoskeletal Disorders: Yes Hx Falls: Yes Hx Fractures: Yes (LEFT ANKLE) - Gastrointestinal Hx Gastrointestinal Disorders: No - Genitourinary/Gynecological Hx Genitourinary Disorders: Yes (BLADDER TUMOR) Hx Hematuria: Yes - Psychiatric Hx Psychophysiologic Disorder: No Hx Substance Use: No - Surgical History Hx Cataract Extraction: Yes (BILAT.) Hx Cardiac Catheterization: Yes Hx Coronary Stent: Yes Hx Orthopedic Surgery: Yes (HX.: FX: LEFT ANKLE-PLATE AND SCREWS PLACED) Other/Comment: CYSTOSCOPY. HX: CYSTOSCOPY MEATAL DILATION, RIGHT PYELOGRAM INSERTION RIGHT URETERAL STENT(04/27/17). - Anesthesia Hx Anesthesia: Yes Hx Anesthesia Reactions: No Hx Malignant Hyperthermia: No - Suicidal Assessment Feels Threatened In Home Enviroment: No Family/Social History - Physician Review Nursing Documentation Reviewed: Yes Family/Social History: Unknown Family HX Smoking Status: Never Smoked Hx Alcohol Use: No Hx Substance Use: No Allergies/Home Meds Allergies/Adverse Reactions: Allergies No Known Allergies Allergy (Verified 04/27/17 11:53) Home Medications: Home Meds Medication Instructions Recorded Confirmed metFORMIN [glucOPHAGE] 500 mg PO DAILY 08/07/16 09/14/17 Insulin Glargine, Recombina 60 unit SC HS PRN 08/19/16 09/14/17 [Lantus] Insulin Lispro Mix 75/25 [humalog 20 units SC ACTID 08/19/16 09/14/17 Mix 75/25 75 U/Ml-25 U/Ml 10 Ml] Review of Systems - Physician Review All systems were reviewed & negative as marked: Yes - Review of Systems Constitutional: absent: Fevers Respiratory: absent: SOB Cardiovascular: absent: Chest Pain Genitourinary Male: Hematuria Physical Exam Vital Signs Reviewed: Yes Vital Signs Temp Pulse Resp BP Pulse Ox 09/14/17 16:18 97.1 F L 77 15 145/79 97 09/14/17 16:03 97.1 F L 75 14 163/83 H 96 09/14/17 13:50 98 F 79 18 129/78 96 09/14/17 13:48 98.0 F 80 18 98 09/14/17 13:26 98.1 F 95 H 18 139/80 99 09/14/17 10:59 98.5 F 99 H 18 145/89 97 Temperature: Afebrile Blood Pressure: Normal Pulse: Tachycardic Respiratory Rate: Normal Appearance: Positive for: Well-Appearing, Non-Toxic, Comfortable Pain Distress: None Mental Status: Positive for: Alert and Oriented X 3 - Systems Exam Head: Present: Atraumatic, Normocephalic Pupils: Present: PERRL Extroacular Muscles: Present: EOMI Conjunctiva: Present: Normal Respiratory/Chest: Present: Clear to Auscultation, Good Air Exchange. No: Respiratory Distress, Accessory Muscle Use, Wheezes, Decreased Breath Sounds, Rales, Retracting, Rhonchi Cardiovascular: Present: Regular Rate and Rhythm, Normal S1, S2. No: Murmurs Abdomen: Present: Normal Bowel Sounds. No: Tenderness, Distention, Peritoneal Signs, Rebound, Guarding Neurological: Present: GCS=15, CN II-XII Intact, Speech Normal Skin: Present: Warm, Dry, Normal Color. No: Rashes Psychiatric: Present: Alert, Oriented x 3, Normal Insight, Normal Concentration Medical Decision Making ED Course and Treatment: 09/14/17 Impression: 62 year old male with unremarkable physical exam complaining of hematuria since 4 days. Plan: -- Labs -- Urinalysis -- Reassess and disposition Progress Notes: 09/14/17 14:00 CT abdominal and pelvis: Creator : Jose Raul Dejesus MD FINDINGS: LOWER THORAX:Unremarkable. LIVER: Unremarkable. No gross lesion or ductal dilatation. GALLBLADDER AND BILE DUCTS: Unremarkable. PANCREAS: Unremarkable. No gross lesion or ductal dilatation. SPLEEN: Unremarkable. ADRENALS: Unremarkable. No mass. KIDNEYS AND URETERS: There is a soft tissue mass in the right distal ureter producing moderate hydronephrosis. This is best seen on coronal image 64. This is suspicious for a urothelial neoplasm. There is no evidence of a stone.Several densities are seen in the bladder which probably represent blood clots. A bladder mass cannot be excluded. VASCULATURE: Unremarkable. No aortic aneurysm. BOWEL: Unremarkable. No obstruction. No gross mural thickening. APPENDIX: Appendix removed PERITONEUM: Unremarkable. No free fluid. No free air. LYMPH NODES: Unremarkable. No enlarged lymph nodes. BLADDER: Multiple densities most likely representing blood clots REPRODUCTIVE: Unremarkable. BONES: No acute fracture. OTHER FINDINGS: None. IMPRESSION: There is a 11 x 22 mm soft tissue mass in the right distal ureter producing moderate hydronephrosis. This is best seen on coronal image 64. This is suspicious for a urothelial neoplasm. There is no evidence of a stone. Several densities are seen in the bladder which probably represent blood clots. A bladder mass cannot be excluded. 09/14/17 16:[address] gonzalez will go to or for cysto - Lab Interpretations Lab Results: 09/14/17 11:15 09/14/17 14:20 Lab Results 09/14/17 14:20: Random Glucose 192 H 09/14/17 14:10: POC Glucose (mg/dL) 167 H 09/14/17 13:56: POC Glucose (mg/dL) 26 L* 09/14/17 11:15: Urine Color Yellow, Urine Appearance Clear, Urine pH 6.0, Ur Specific [place] 1.020, Urine Protein 30 H, Urine Glucose (UA) Negative, Urine Ketones Negative, Urine Blood Large H, Urine Nitrate Negative, Urine Bilirubin Negative, Urine Urobilinogen 0.2, Ur Leukocyte Esterase Negative, Urine RBC 25 - 30, Urine WBC 2 - 5, Ur Epithelial Cells None, Urine Bacteria Many 09/14/17 11:15: Blood Type A POSITIVE, Antibody Screen Negative, BBK History Checked Patient has bt 09/14/17 11:15: Sodium 145, Potassium 4.1, Chloride 107, Carbon Dioxide 23, Anion Gap 20, BUN 36 H, Creatinine 1.7 H, Est GFR ( Amer) 49, Est GFR ( Non-Af Amer) 41, Random Glucose 132 H, Calcium 9.7, Total Bilirubin 0.3, AST 22 , ALT 29, Alkaline Phosphatase 85, Total Protein 9.2 H, Albumin 4.7, Globulin 4.5, Albumin/Globulin Ratio 1.1 09/14/17 11:15: PT 12.5, INR 1.09 H, APTT 28.9 09/14/17 11:15: WBC 6.2 D, RBC 4.70, Hgb 11.2 L, Hct 34.3 L, MCV 73.0 L, MCH 23.8 L, MCHC 32.7, RDW 16.3 H, Plt Count 318, MPV 9.8, Gran % 55.9, Lymph % ( Auto) 36.3 H, Ro[place] % (Auto) 5.5, Eos % (Auto) 2.1, Baso % (Auto) 0.2, Gran # 3.47, Lymph # (Auto) 2.3, [place] # (Auto) 0.3, Eos # (Auto) 0.1, Baso # (Auto) 0.01 I have reviewed the lab results: Yes - RAD Interpretation Radiology Orders: 09/14/17 11:23 ABD & PELVIS W/O PO OR IV CONT [CT] Stat 09/14/17 15:56 FLUOROSCOPY UP TO 1 HOUR [RAD] Routine - Medication Orders Current Medication Orders: Hydromorphone HCl (Dilaudid) 0.5 mg IVP Q15M PRN PRN Reason: Pain, moderate (4-7) Stop: 09/14/17 18:06 Lactated Ringer's (Lactated Ringer's) 1,000 mls @ 75 mls/hr IV .[id number] GALINDO Stop: 09/14/17 18:16 - Scribe Statement The provider has reviewed the documentation as recorded by the Margaritaibrachana Serna Provider Scribe Attestation: All medical record entries made by the Scribe were at my direction and personally dictated by me. I have reviewed the chart and agree that the record accurately reflects my personal performance of the history, physical exam, medical decision making, and the department course for this patient. I have also personally directed, reviewed, and agree with the discharge instructions and disposition. Disposition/Present on Arrival - Present on Arrival Any Indicators Present on Arrival: No History of DVT/PE: No History of Uncontrolled Diabetes: Yes Urinary Catheter: No History of Decub. Ulcer: No History Surgical Site Infection Following: None - Disposition Have Diagnosis and Disposition been Completed?: Yes Diagnosis: Hematuria Disposition: HOSPITALIZED Disposition Time: 04:00 Condition: STABLE
[2017-09-14 11:28] LABS: BASO # 0.01 K/mm3 (0.0-2.0); BASO % 0.2 % (0.0-3.0); EOS # 0.1 (0.0-0.7); EOS % 2.1 % (1.5-5.0); GRAN # 3.47 (1.4-6.5); GRAN % 55.9 % (50.0-68.0); HEMOGLOBIN 11.2 g/dL (14.0-18.0); LYMPH # 2.3 (1.2-3.4); LYMPH % 36.3 % (22.0-35.0); MEAN CORPUSCULAR HEMOGLOBIN 23.8 pg (25.0-35.0); MEAN CORPUSCULAR HGB CONC 32.7 g/dl (31.0-37.0); MEAN PLATELET VOLUME 9.8 fl (7.0-11.0); MONO # 0.3 (0.1-0.6); MONO % 5.5 % (1.0-6.0); RBC 4.7 10^6/uL (3.5-6.1); RED CELL DISTRIBUTION WIDTH 16.3 % (11.5-14.5); WHITE BLOOD COUNT 6.2 10^3/ul (4.5-11.0)
[2017-09-14 11:30] LABS: URINE APPEARANCE CLEAR (CLEAR); URINE BILIRUBIN NEGATIVE (NEGATIVE); URINE BLOOD LARGE (NEGATIVE); URINE COLOR YELLOW (YELLOW); URINE GLUCOSE (UA) NEGATIVE (NEGATIVE); URINE LEUKOCYTE ESTERASE NEGATIVE Leu/uL (NEGATIVE); URINE PROTEIN 30 mg/dL (<30 mg/dL); URINE UROBILINOGEN 0.2 E.U./dL (<1 E.U./dL)
[2017-09-14 11:36] LABS: URINE RBC 25 - 30 /hpf (0-2)
[2017-09-14 11:37] LABS: URINE BACTERIA MANY (NEG)
[2017-09-14 11:40] LABS: ALB/GLOB RATIO 1.1 (1.1-1.8); ALBUMIN 4.7 g/dL (3.0-4.8); CALCIUM 9.7 mg/dL (8.4-10.5); INR 1.09 (0.93-1.08); PARTIAL THROMBOPLASTIN TIME 28.9 Seconds (25.1-36.5); PROTHROMBIN TIME 12.5 SECONDS (9.4-12.5)
--- NOTE | 2017-09-14 13:29 | CT ---
PROCEDURE: CT Abdomen and Pelvis without intravenous contrast HISTORY: hematuria COMPARISON: None. TECHNIQUE: Without contrast. Contrast dose: Radiation dose: Total exam DLP = 746 mGy-cm. This CT exam was performed using one or more of the following dose reduction techniques: Automated exposure control, adjustment of the mA and/or kV according to patient size, and/or use of iterative reconstruction technique. FINDINGS: LOWER THORAX: Unremarkable. LIVER: Unremarkable. No gross lesion or ductal dilatation. GALLBLADDER AND BILE DUCTS: Unremarkable. PANCREAS: Unremarkable. No gross lesion or ductal dilatation. SPLEEN: Unremarkable. ADRENALS: Unremarkable. No mass. KIDNEYS AND URETERS: There is a soft tissue mass in the right distal ureter producing moderate hydronephrosis. This is best seen on coronal image 64. This is suspicious for a urothelial neoplasm. There is no evidence of a stone. Several densities are seen in the bladder which probably represent blood clots. A bladder mass cannot be excluded. VASCULATURE: Unremarkable. No aortic aneurysm. BOWEL: Unremarkable. No obstruction. No gross mural thickening. APPENDIX: Appendix removed PERITONEUM: Unremarkable. No free fluid. No free air. LYMPH NODES: Unremarkable. No enlarged lymph nodes. BLADDER: Multiple densities most likely representing blood clots REPRODUCTIVE: Unremarkable. BONES: No acute fracture. OTHER FINDINGS: None. IMPRESSION: There is a 11 x 22 mm soft tissue mass in the right distal ureter producing moderate hydronephrosis. This is best seen on coronal image 64. This is suspicious for a urothelial neoplasm. There is no evidence of a stone. Several densities are seen in the bladder which probably represent blood clots. A bladder mass cannot be excluded.
[2017-09-14] MEDS ORDERED: Propofol 10 mg/ml Inj (20 ML) ONE (14:11)
[2017-09-14] MEDS ORDERED: Lidocaine 2% Inj (20ml) ONE (14:12)
[2017-09-14] MEDS ORDERED: cefTRIAXone (Rocephin) 1 gm Inj ONE (15:17)
[2017-09-14] MEDS ORDERED: Iohexol 240 (50 ml) ONE (15:30)
[2017-09-14] MEDS ORDERED: HYDROmorphone 0.5 mg/0.5 ml ISec IVP PRN (16:06)
[2017-09-14] MEDS ORDERED: Lactated Ringer's 1,000 ML IV SCH (16:15)
--- NOTE | 2017-09-14 17:06 | CARD ---
APPROVED REPORT EKG Measurement Heart [id number] <Conclusion> Normal sinus rhythm Normal ECG
[2017-09-14] MEDS ORDERED: Oxycodone/Acetaminophen 5/325 mg Tab ONE (17:12)
[2017-09-14] MEDS ORDERED: Oxycodone/Acetaminophen 5/325 mg Tab PO ONE (17:15)
[2017-09-14] MEDS ORDERED: Oxycodone/Acetaminophen 5/325 mg Tab PO PRN (17:18)
[2017-09-14 17:45] VITALS: BP 128/67; PULSE 95; RESP 18; TEMP 98; O2SAT 98
--- NOTE | 2017-09-15 09:33 | RAD ---
PROCEDURE: Fluoroscopy up to 1 hour HISTORY: RETROGRADE PYELOGRAM / STENT INSERTION (RIGHT) COMPARISON: CT 09/14/2017 TECHNIQUE: 73.9 seconds of fluoro time. Cumulative dose 22.39 mGy. 20 images were submitted FINDINGS: As seen on CT there is a mass in the distal ureter at the level of the sacrum. A wire was placed beyond the mass and a right ureteral stent was placed. IMPRESSION: As above
--- NOTE | 2017-09-28 14:07 | PN ---
DATE: 09/14/2017 UROLOGY IMMEDIATE POSTOPERATIVE NOTE SUBJECTIVE: The patient is in the Recovery. See the history and physical and the surgical report. He was brought in as an emergency with hematuria. We know he has transitional cell carcinoma lesions that would be biopsied and fulgurated. He has right hydronephrosis. This was what looked like a ureteral lesion. He is currently stable in the Recovery Room. Vital signs within normal limits. DIAGNOSES: 1. Transitional cell carcinoma of the bladder. 2. Right hydronephrosis and presumably, a lesion inside distal ureter. The patient now has a stent in place. We are going to discuss further plan. Our recommendation is going to be for cystoscopy, ureteroscopy and biopsy and fulguration and then, further plans will follow. Curry Gonzalez MD
--- NOTE | 2017-09-28 19:52 | OP ---
PROCEDURE DATE: 09/14/2017 UROLOGY OPERATIVE REPORT This is an emergency report. PREOPERATIVE DIAGNOSES: Gross hematuria, history of transitional cell carcinoma. POSTOPERATIVE DIAGNOSES: 1. Gross hematuria, history of transitional cell carcinoma. 2. Right hydronephrosis, looks like a light filling defect on the right ureter. PROCEDURE: Cystoscopy, right retrograde pyelogram, insertion of right double-J stent, and bladder biopsy and fulguration. Specimen sent down was bladder biopsy. ESTIMATED BLOOD LOSS: Less than 20 mL. COMPLICATIONS: There were no complications. We were able to insert a double-J stent without complications. See the addendum at the end of this note and further plans to follow. INDICATIONS FOR PROCEDURE: See history and physical for further details. A very pleasant gentleman who is here now for the above-listed testing. DESCRIPTION OF PROCEDURE: After obtaining informed consent, the patient was placed on the table. Routine monitor was placed. Time-out was called to confirm the patient's positioning,etc. We introduced the cystoscope via urethra. Normal anterior urethra noted. No strictures are noted. Verumontanum is visually occlusive by 2 to 3 cm in size. Now, we identified the ureteral orifice within the urinary bladder. There were some inflammatory lesions, but the main focus here was the gross hematuria and the right-sided lesion. So, we focused on the following: We did a right retrograde pyelogram. We did see a filling defect in the lower ureter and a right double-J stent inserted. We also sent down specimen from the bladder to confirm the diagnosis of transitional cell carcinoma. We fulgurated the lesion. At the termination of the procedure, the patient still has other abnormalities, but the main focus was here to try to get the stent inserted. The patient tolerated the procedure without complication. With today's finding, we found bladder tumors, these need to be addressed, but the other thing that needs to be addressed is his right hydronephrosis and his right ureteral lesion. I discussed this with the patient at length. I am going to plan to bring him back as quickly as possible. Depending on his schedule, we will try to bring him back as quickly as possible. From the above findings, it seems to me that he will need a right nephroureterectomy at some point. We will recommend a surgical extirpation and most likely we will recommend it robotically. Further plans will follow. Curry Gonzalez MD [facility] # [id number]
--- NOTE | 2017-09-28 20:02 | HP ---
DATE OF EXAM: 09/14/2017 UROLOGY EMERGENCY ADMISSION HISTORY AND PHYSICAL The patient is being admitted through the ER with gross hematuria. HISTORY OF PRESENT ILLNESS: Mr. Chyna Us is being admitted as an emergency admission with gross hematuria. Mr. Us is a very pleasant gentleman, he is somewhat noncompliant. He knows he has transitional cell carcinoma of the bladder. There are concerns of upper tract. He only comes in when he is bleeding and now he comes in and noted to have bleeding again and he is here for further diagnostic studies. We discussed the options for mitomycin and other injections, but also concerns of the upper tract. See the plan as listed below. PAST MEDICAL AND SURGICAL HISTORY: As listed on the chart. No history of [place] or CVA. SOCIAL HISTORY: Remarkably work very hard, barely able to get off of work and he can only do anything after hours or very rarely. REVIEW OF SYSTEMS: As listed above. No weight loss, chest pain, shortness of breath. In his usual state of health minus the fact that he is having the gross hematuria. MEDICATIONS: See chart. ALLERGIES: . PHYSICAL EXAMINATION: GENERAL: Well-nourished male, in no apparent distress. VITAL SIGNS: Within normal limits as listed in the chart. LUNGS: Clear. ABDOMEN: Overall soft. Nontender. No flank mass appreciated. GENITOURINARY: Normal phallus without discharge. No testicular masses. RECTAL: A 20 to 30 g prostate, soft and smooth. DIAGNOSES: Gross hematuria, voiding dysfunction, history of transitional cell carcinoma of the bladder. PLAN: We are going to bring the patient as an emergency. We are going to do the followin. Getting upper tract studies. The patient was brought to the ER, see the CT scan report. 2. Planning for a cysto, retrograde. It appears the patient has hydronephrosis and may be a lesion in his ureter. So, the plan is as follows; 1. Cystoscopy. 2. Retrograde pyelogram. 3. Possible biopsy. 4. Stent insertion and then biopsy to follow. We may also require a bladder biopsy. We will see what we are dealing. Please also see previous notes, I have had a chance to review. Previously, we did insert a stent in preparation for the procedure with resection. So, at this point, further plans will follow depending on what we find clinically. The patient has been brought in as an emergency and then, further plans will follow. Curry Gonzalez MD
--- NOTE | 2017-09-29 13:29 | PN ---
DATE: 09/14/2017 IMMEDIATE POSTOPERATIVE NOTE SUBJECTIVE: See the history and physical and the operative note. This is an immediate postop note. The patient is in the recovery room, stable condition. He is status post cystoscopy and retrograde pyelogram with stent insertion and a biopsy and fulguration. Vital signs remain stable. Garcia catheter is draining. Everything start draining well. There were no complications to the procedure. The vital signs remain stable. Underlying diagnoses are gross hematuria without transitional cell carcinoma, history of fulguration carcinoma with a right ureteral lesion with right hydronephrosis. He remains stable. The plan will be routine postop care. Antibiotics will be used. Further plans will follow. Curry Gonzalez MD
--- NOTE | 2017-09-30 05:48 | HP ---
UROLOGY ADMISSION HISTORY AND PHYSICAL REASON FOR ADMISSION: Gross hematuria. HISTORY OF PRESENT ILLNESS: Mr. Us is a very pleasant gentleman who is here now for a workup. The only complaint what he is having gross hematuria as we bring him to the Emergency Room for this new gross hematuria. Initially, we worked him up and we doubted postvoiding dysfunction and prostate issues, but mostly, we doubted transitional cell carcinoma in his urinary bladder, very low grade. We discussed options including just repeat resections including the possibility for the mitomycin, chemotherapy versus BCG. After discussing all the various options with the patient, he is now being admitted to the hospital today through the Emergency Room. We did a CT scan, see the report. See the plans listed below and he is currently admitted for an emergency cysto, bladder biopsy, fulguration, and also a stent insertion. (It looks like he has an upper tract tumor as well). PAST MEDICAL AND SURGICAL HISTORY: As listed on the chart. No history of [place], CVA. SOCIAL HISTORY: He is a nonsmoker and his country of origin is [place]. REVIEW OF SYSTEMS: As listed above. No weight loss, chest pain, or shortness of breath. PHYSICAL EXAMINATION: GENERAL: Well-nourished male, in no apparent distress. VITAL SIGNS: Within normal limits as listed in the chart. LYMPHATIC: No cervical or axillary lymphadenopathy. LUNGS: Clear. HEART: S1 and S2. ABDOMEN: Overall, soft and nontender. No flank mass appreciated. GENITOURINARY: Normal phallus without discharge. No testicular masses are noted. RECTAL: A 20 to 30 g prostate, soft and smooth. LABORATORY DATA: See chart. Normal renal function noted. Hemoglobin and hematocrit noted. CT scan is noted and it has the following findings: There is right hydronephrosis. It looks like there is a right ureteral lesion around the level of the distal ureter, somewhere around the iliac vessels. Scarring middle third. There also looks like a lesion within the bladder. There is no adenopathy described. DIAGNOSES: 1. Gross hematuria. 2. History of transitional cell carcinoma. 3. Right hydronephrosis. 4. Voiding dysfunction. PLAN: Today, we are going to bright the patient to the OR immediately for a cysto, bladder biopsy, fulguration, and TURBT. Regarding his right hydronephrosis, we are going to place a stent right ureteroscope and then further plans to follow. I explained to the patient in great detail, further plans to follow. Curry Gonzalez MD
--- NOTE | 2017-10-01 08:44 | OP ---
PROCEDURE DATE: 09/14/2017 UROLOGIC OPERATIVE NOTE PREOPERATIVE DIAGNOSES: Gross hematuria, history of transitional cell carcinoma of the bladder, right hydronephrosis, right ureteral tumor, and bladder tumor. POSTOPERATIVE DIAGNOSES: Gross hematuria, history of transitional cell carcinoma of the bladder, right hydronephrosis, right ureteral tumor and bladder tumor. PROCEDURES: Cystoscopy, right retrograde pyelogram, right double-J stent insertion, right bladder biopsy and fulguration. COMPLICATIONS: There were no complications. INDICATIONS: See history and physical for further details. A very pleasant gentleman who has significant voiding dysfunction, does have a little bit of a meatal abnormality. We were able to introduce the scope without much dilation. He has voiding dysfunction, gross hematuria, bladder lesions. He is here now for the above procedure. A very pleasant, but somewhat noncompliant gentleman in the emergency room today. This is an emergent procedure. He came in with gross hematuria. We did a CT scan which showed new-onset hydronephrosis. After discussing options with the patient, he is here now in the OR for the above-listed procedures. UROLOGY FINDINGS: 1. Normal meatus, but we needed to use the obturator to introduce the scope, a little tight. 2. . 3. Multiple lesions within the bladder, we did a biopsy and fulguration, but did not clear the bladder see below plan. 4. Retrograde pyelogram showing the filling defect and films for the double-J stent. ureteroscopy and biopsy. There were no complications. Blood loss less than 20 mL. DESCRIPTION OF PROCEDURE: After obtaining informed consent, the patient was placed on the table. The patient came in for an emergency procedure. Cystoscope was introduced via the urethra. We needed to use the obturator to introduce it through the meatus. Around the tightness. Once we passed it, the remainder of the within normal limits. The . The bladder was inspected carefully, the ureteral orifice was identified. Interestingly, no gross hematuria out of the ureteral orifice with many little lesions along the bladder wall, greater than 5 in numbers and all little capillary material. . A biopsy and fulguration were taken of a few specimens just for confirmation and diagnoses. A right retrograde pyelogram was performed and a double-J stent was inserted without difficulty. At the termination of the procedure, we capped the double-J stent. There were no complications. See the postop note as well. The patient is in stable condition, brought to the recovery room in stable condition but the recommendation has to be a ureteral . Further plans will follow. Curry Gonzalez MD
== END 2017-09-14 19:20 | disposition home or self-care (01) ==
LOC: ED 10:54 → SDS 13:51
PROVIDERS: ATTEND Urology
DX: C67.9 Malignant neoplasm of bladder, unspecified (principal); R31.0 Gross hematuria; E11.9 Type 2 diabetes mellitus without complications; I25.2 Old myocardial infarction; N32.9 Bladder disorder, unspecified; Z79.4 Long term (current) use of insulin; Z85.46 Personal history of malignant neoplasm of prostate; Z95.5 Presence of coronary angioplasty implant and graft; I25.10 Atherosclerotic heart disease of native coronary artery without angina pectoris; Z87.81 Personal history of (healed) traumatic fracture; Z98.42 Cataract extraction status, left eye; Z98.41 Cataract extraction status, right eye; R40.2412 Glasgow coma scale score 13-15, at arrival to emergency department; N13.30 Unspecified hydronephrosis; Z85.51 Personal history of malignant neoplasm of bladder; Z91.19 Patient's noncompliance with other medical treatment and regimen
CPT/HCPCS: 52224; 52332; 74176; 80053; 81001; 82947; 82948; 85025; 85610; 85730; 86850; 86900; 88305; 93005; 99285; C1758 ×2; C1769; C2625; J0696; J1170; J2704; J3010; J7120 ×2; Q9966